=== PATIENT | female | born 1940 | race Caucasian/White ===

== ENCOUNTER 2019-08-14 17:30 | Emergency (ER) | payer OTHER ==
[~2019-08-14] VITALS: Ht 157.5 cm; Wt 67.1 kg
[2019-08-14 18:00] LABS: ABSOLUTE BASOPHILS 0.1 thou/uL (0.0-0.2); ABSOLUTE EOSINOPHILS 0.1 thou/uL (0.0-0.7); ABSOLUTE LYMPHOCYTES 1.1 thou/uL (0.8-5.3); ABSOLUTE MONOCYTES 0.6 thou/uL (0.0-1.2); ABSOLUTE NEUTROPHILS 3.9 thou/uL (1.6-8.1); BASOPHILS 0.9 %; EOSINOPHILS 1.3 %; HEMATOCRIT 38.6 % (37.0-47.0); HEMOGLOBIN 13.1 gm/dL (12.0-15.0); LYMPHOCYTES 19.3 %; MCH 31.7 pg (26.0-34.0); MCHC 33.9 g/dL (28.0-37.0); MCV 93.5 fL (80.0-100.0); MONOCYTES 10.5 %; MPV 10.6 fl. (7.2-11.1); NUCLEATED RBCS 0 /100WBC; PLATELET COUNT* 153 thou/uL (150-400); RBC 4.13 mil/uL (4.20-5.00); RDW-CV 14.1 % (10.5-14.5); WBC 5.8 thou/uL (4.0-11.0)
[2019-08-14] MEDS ORDERED: LIPITOR40 MG PO (18:01)
[2019-08-14] MEDS ORDERED: ASA81BEC PO (18:01)
[2019-08-14] MEDS ORDERED: DILTIAZEM ER180 M2 PO (18:01)
[2019-08-14] MEDS ORDERED: DIVALPROEX SOD125 MG PO (18:02)
[2019-08-14] MEDS ORDERED: COZAAR 25 MG TA25 M2 (18:02)
[2019-08-14] MEDS ORDERED: FUROSEMIDE 20 M20 MG PO (18:02)
[2019-08-14] MEDS ORDERED: MAGNESIUM250 M1 PO (18:02)
[2019-08-14] MEDS ORDERED: SERTRALINE HCL100 MG PO (18:03)
[2019-08-14] MEDS ORDERED: KLOR-CON 1010 MEQ PO (18:03)
[2019-08-14] MEDS ORDERED: PROTONIX40 M2 PO (18:03)
[2019-08-14] MEDS ORDERED: COD LIVER OIL1 EAC5 PO (18:04)
[2019-08-14] MEDS ORDERED: MAPAP325 MG PO (18:04)
[2019-08-14] MEDS ORDERED: ROBAFEN CF LIQ118 ML PO (18:05)
[2019-08-14 18:10] LABS: APTT 24.8 Seconds (25.0-31.3); INR 1.1; PROTIME 10.8 Seconds (9.20-11.50)
[2019-08-14 18:17] LABS: CALCIUM 8.9 mg/dL (8.5-10.1); CREATININE 0.9 mg/dL (0.6-1.3); POTASSIUM 3.9 mmol/L (3.5-5.1)
[2019-08-14 18:21] LABS: ALBUMIN 3.6 g/dL (3.4-5.0); TOTAL BILIRUBIN 0.5 mg/dL (<0.1-1.0); TOTAL PROTEIN 6.9 g/dL (6.4-8.2)
[2019-08-14] MEDS ORDERED: KEFLEX500 M1 PO (19:43)
[2019-08-14] MEDS ORDERED: CENTANY30 GM TOP (19:43)
[2019-08-14 20:48] VITALS: BP 137/80
--- NOTE | 2019-08-16 08:38 | EKG ---
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1940 Requested By: Phani Edwards Order Number: [id number] MD: Nuno Bejarano Measurements Intervals [place] Rate: 62 P: [place]: QRS: 44 QRSD: 143 T: 73 QT: 397 QTc: 404 Interpretive Statements Atrial flutter with predominant 4:1 AV block IVCD, consider atypical RBBB No previous ECG available for comparison Electronically Signed On 08-16-2019 8:38:18 FOREIGN TRADE TEACHER by Nuno Bejarano [email or web address] <ELECTRONICALLY SIGNED> By: Nuno Bejarano MD, [facility] 08/16/19 0838 1744 1744 Nuno Bejarano MD, FACC /EPI
== END 2019-08-14 20:50 | disposition home or self-care (01) ==
LOC: M.ERS 17:30
PROVIDERS: Family Medicine
DX: S81.011A Laceration without foreign body, right knee, initial encounter (principal); S61.511A Laceration without foreign body of right wrist, initial encounter; S01.81XA Laceration without foreign body of other part of head, initial encounter; S70.02XA Contusion of left hip, initial encounter; R60.0 Localized edema; I48.91 Unspecified atrial fibrillation; W18.39XA Other fall on same level, initial encounter; Y93.89 Activity, other specified; Y92.89 Other specified places as the place of occurrence of the external cause; Y99.8 Other external cause status

== ENCOUNTER 2020-03-30 10:46 | Inpatient (IN) | payer MEDICARE ==
[~2020-03-30] VITALS: Ht 167.6 cm; Wt 67.6 kg
[~2020-03-30 10:46] MED LIST: ASPIRIN EC325 M1 PO; CENTANY30 GM TOP; COD LIVER OIL1 EAC5 PO; COZAAR 25 MG TA25 M2; DILTIAZEM ER180 M2 PO; DIVALPROEX SOD125 MG PO; FUROSEMIDE 40 M40 MG PO; KEFLEX500 M1 PO; KLOR-CON 1010 MEQ PO; LIPITOR40 MG PO; MAG-OXIDE400 MG PO; MAPAP325 MG PO; PROTONIX40 M2 PO; ROBAFEN CF LIQ118 ML PO; SERTRALINE HCL25 M1 PO
[2020-03-30] MEDS ORDERED: LOPERAMIDE2 MG PO (10:54)
[2020-03-30 11:35] LABS: BE 0.8 mmol/L (-2 to +3); PO2 75.3 mmHg (75.0-100.0); pH 7.458 (7.340-7.450)
[2020-03-30 12:08] LABS: ABSOLUTE EOSINOPHILS 0.1 thou/uL (0.0-0.7); ABSOLUTE LYMPHOCYTES 1.1 thou/uL (0.8-5.3); ABSOLUTE MONOCYTES 0.7 thou/uL (0.0-1.2); ABSOLUTE NEUTROPHILS 5.4 thou/uL (1.6-8.1); BASOPHILS 0.6 %; EOSINOPHILS 0.9 %; HEMATOCRIT 42.2 % (37.0-47.0); HEMOGLOBIN 14.3 gm/dL (12.0-15.0); LYMPHOCYTES 15.6 %; MCH 32.1 pg (26.0-34.0); MCHC 33.8 g/dL (28.0-37.0); MONOCYTES 8.9 %; MPV 11.7 fl. (7.2-11.1); NUCLEATED RBCS 0 /100WBC; PLATELET COUNT* 191 thou/uL (150-400); RBC 4.44 mil/uL (4.20-5.00); RDW-CV 14.1 % (10.5-14.5); WBC 7.4 thou/uL (4.0-11.0)
[2020-03-30 12:19] LABS: APTT 24.9 Seconds (25.0-31.3); CALCIUM 9.2 mg/dL (8.5-10.1); CREATININE 0.8 mg/dL (0.6-1.3); POTASSIUM 4.3 mmol/L (3.5-5.1); PROTIME 10.7 Seconds (9.20-11.50)
[2020-03-30 12:29] LABS: ALBUMIN 3.5 g/dL (3.4-5.0); MAGNESIUM 2.2 mg/dL (1.8-2.4); TOTAL BILIRUBIN 0.6 mg/dL (<0.1-1.0); TOTAL PROTEIN 7.4 g/dL (6.4-8.2)
[2020-03-30 13:55] LABS: URINE BILIRUBIN NEGATIVE (Negative); URINE BLOOD NEGATIVE (Negative); URINE CLARITY CLEAR; URINE COLOR YELLOW; URINE GLUCOSE-RANDOM NEGATIVE (Negative); URINE KETONES TRACE (Negative); URINE LEUKOCYTES-REFLEX NEGATIVE (Negative); URINE NITRITE-REFLEX NEGATIVE (Negative); URINE PROTEIN NEGATIVE (Negative); URINE SPECIFIC GRAVITY 1.025 (1.005-1.030); URINE UROBILINOGEN 0.2 E.U./dl (0.2-1.0)
--- NOTE | 2020-03-30 15:04 | EKG ---
[place] [address] ELECTROCARDIOGRAM REPORT Name: ENRIQUE STEINER Room: [place] [address] ADM IN [facility].#: [id number] Admission: 03/30/20 Attend Phys: Pierre Chaparro Discharge: Date of : 36 Date of Service: 03/30/20 1058 Report #: [id number] THIS REPORT FOR: //name// [facility] ED Test Date: 2020-03-30 Test Time: 10:58:44 Pat Name: ENRIQUE STEINER Department: Room: [facility] Gender: F Inside Sales Account Executive: ANA LAURA : 1940 Requested By: Heidy Barker Order Number: [id number] MD: Nuno Bejarano Measurements Intervals [place] Rate: 82 P: [place]: QRS: 73 QRSD: 108 T: -35 QT: 393 QTc: 459 Interpretive Statements Atrial flutter Low voltage, precordial leads Borderline repol abnormality, diffuse leads Compared to ECG 08/14/2019 17:44:37 Low QRS voltage now present Electronically Signed On 03-30-2020 15:04:48 CDT by Nuno Bejarano [email or web address] <ELECTRONICALLY SIGNED> By: Nuno Bejarano MD, [facility] 03/30/20 1504 1058 1058 Nuno Bejarano MD, [facility] /EPI
[2020-03-30 16:47] VITALS: BP 189/96
[2020-03-30 16:53] VITALS: BP 129/92
[2020-03-30 19:50] VITALS: BP 133/97
[2020-03-31] VITALS: BP 149/79
[2020-03-31 04:00] VITALS: BP 140/87
[2020-03-31 08:00] VITALS: BP 134/94
[2020-03-31 12:00] VITALS: BP 148/83
[2020-03-31 12:02] LABS: POTASSIUM 4.1 mmol/L (3.5-5.1)
--- NOTE | 2020-03-31 12:34 | 2DMMODE ---
[place] [address] 2 D/M-MODE ECHOCARDIOGRAM Name: ENRIQUE STEINER Room: [address] IN [facility].#: [id number] Admission: 03/30/20 Attend Phys: Pierre Chaparro Discharge: Date of : 36 Date of Service: 03/31/20 1233 Report #: [id number] THIS REPORT FOR: cc: Tiomteo Lewis MD, Srinath MD Blick,Nuno Gunter MD [facility] ~ APPROVED REPORT Study performed: 03/31/2020 11:10:34 EXAM: Comprehensive 2D, Doppler, and color-flow Echocardiogram Patient Location: In-Patient Room #: [facility] BSA: 1.77 HR: 99 bpm BP: 140/87 mmHg Rhythm: Atrial Fibrillation Other Information Study Quality: Technically Limited Technically limited study due to uncooperative patient, patient could not tolerate procedure. Indications CVA/TIA Echo Enhancing Agent Indication: Rule out Shunt Agent(s) / Amount(s) Used: Agitated Saline 10 cc 2D Dimensions IVSd: 10.61 (7-11mm) LVOT Diam: 19.65 (18-24mm) LVDd: 38.59 mm PWd: 7.35 (7-11mm) Ascending Ao: 31.31 (22-36mm) LVDs: 24.94 (25-40mm) Aortic Root: 28.74 mm Aortic Valve AoV Peak Rodrigo.: 1.88 m/s AO Peak Gr.: 14.08 mmHg LVOT Max P.54 mmHg AO Mean Gr.: 8.22 mmHg LVOT Mean P.89 mmHg LVOT Max V: 0.62 m/s AO V2 VTI: 32.17 cm LVOT Mean V: 0.44 m/[place] [address] 2 D/M-MODE ECHOCARDIOGRAM Name: ENRIQUE STEINER Room: [address] IN [facility].#: [id number] Admission: 03/30/20 Attend Phys: Pierre Chaparro Discharge: Date of : 36 Date of Service: 03/31/20 1233 Report #: [id number] SHERRI (VTI): 1.05 cm2 LVOT V1 VTI: 11.12 cm Mitral Valve MV Decel. Time: 182.19 ms MV PHT: 52.84 ms MVA (PHT): 4.16 cm2 Pulmonary Valve PV Peak Rodrigo.: 0.82 m/s PV Peak Gr.: 2.68 mmHg Tricuspid Valve RAP Estimate: 5.00 mmHg TR Peak Gr.: 20.60 mmHg RVSP: 25.00 mmHg PA Pressure: 25.00 mmHg Left Ventricle The left ventricle is normal size. There is normal LV segmental wall motion. There is normal left ventricular wall thickness. Left ventricular systolic function is normal. The left ventricular ejection fraction is within the normal range. LVEF is 60-65%. This study is not technically sufficient to allow evaluation of the LV diastolic function due to atrial fibrillation. Right Ventricle The right ventricle is normal size. The right ventricular systolic function is normal. Atria The left atrium size is normal. Interatrial septum is intact without evidence of ASD or PFO. Due to technical difficulty of the study, a small right to left shunt could not be excluded The right atrium size is normal. Aortic Valve Moderate aortic valve sclerosis. Trace aortic regurgitation. Moderate aortic stenosis. Mitral Valve There is mitral annular calcification. The mitral valve is normal in structure. Trace mitral regurgitation. No evidence of mitral valve stenosis. Tricuspid Valve The tricuspid valve is normal in structure. Mild tricuspid regurgitation. [place] [address] 2 D/M-MODE ECHOCARDIOGRAM Name: ENRIQUE STEINER Room: [address]#: [id number] Admission: 03/30/20 Attend Phys: Pierre Chaparro Discharge: Date of : 36 Date of Service: 03/31/20 1233 Report #: [id number] Pulmonic Valve The pulmonary valve is normal in structure. Trace pulmonic regurgitation. Great Vessels The aortic root is normal in size. IVC is normal in size and collapses >50% with inspiration. Pericardium There is no pericardial effusion. <Conclusion> LVEF is 60-65%. Trace aortic regurgitation. Moderate aortic valve sclerosis. Interatrial septum is intact without evidence of ASD or PFO. Due to technical difficulty of the study, a small right to left shunt could not be excluded <ELECTRONICALLY SIGNED> By: Nuno Bejarano MD, [facility] 03/31/20 1233 1233 1233 Nuno Bejarano MD, [facility] /INF
[2020-03-31 16:00] VITALS: BP 106/62
[2020-03-31 20:00] VITALS: BP 142/86
[2020-04-01] VITALS: BP 145/93
[2020-04-01 02:06] LABS: GLYCOHEMOGLOBIN (HGB A1C) 5.6 % (4.8-5.6)
[2020-04-01 04:00] VITALS: BP 171/93
[2020-04-01 05:11] LABS: ANION GAP 7 mmol/L (7-16); BUN 17 mg/dL (7-18); CALCIUM 8.9 mg/dL (8.5-10.1); CHLORIDE 107 mmol/L (98-107); CHOLESTEROL 128 mg/dL (<200); CO2 28 mmol/L (21-32); CREATININE 0.8 mg/dL (0.6-1.3); GLUCOSE 91 mg/dL (70-99); HDL CHOLESTEROL 45 mg/dL (>40); LDL CHOLESTEROL 62 mg/dL (<100); POTASSIUM 3.6 mmol/L (3.5-5.1); SERUM ASSESSMENT Clear; SODIUM 142 mmol/L (136-145); TC:HDL 2.8 Ratio (Not establshd); TRIGLYCERIDE 107 mg/dL (<150); VLDL 21 mg/dL (<40)
[2020-04-01 08:00] VITALS: BP 146/82
[2020-04-01 09:55] LABS: ALBUMIN 2.9 g/dL (3.4-5.0); CALCIUM 8.7 mg/dL (8.5-10.1); CREATININE 0.7 mg/dL (0.6-1.3); POTASSIUM 4.1 mmol/L (3.5-5.1); TOTAL BILIRUBIN 0.5 mg/dL (<0.1-1.0); TOTAL PROTEIN 6.2 g/dL (6.4-8.2)
[2020-04-01 12:00] VITALS: BP 140/84
[2020-04-01] MEDS ORDERED: ELIQUIS5 M1 PO (12:25)
[2020-04-01 16:00] VITALS: BP 114/66
[2020-04-01 20:00] VITALS: BP 134/73
[2020-04-02] VITALS: BP 139/81
[2020-04-02 04:00] VITALS: BP 117/82
[2020-04-02 07:30] VITALS: BP 107/59
[2020-04-02 13:47] VITALS: BP 96/59
[2020-04-02 20:00] VITALS: BP 107/55
[2020-04-03] VITALS: BP 155/62
[2020-04-03 04:00] VITALS: BP 116/65
[2020-04-03 05:53] LABS: ALBUMIN 2.6 g/dL (3.4-5.0); CALCIUM 8.3 mg/dL (8.5-10.1); CREATININE 0.8 mg/dL (0.6-1.3); POTASSIUM 3.5 mmol/L (3.5-5.1); TOTAL BILIRUBIN 0.5 mg/dL (<0.1-1.0); TOTAL PROTEIN 5.6 g/dL (6.4-8.2)
[2020-04-03 09:00] VITALS: BP 109/70
[2020-04-03 16:26] VITALS: BP 103/64
[2020-04-03 20:00] VITALS: BP 128/84
[2020-04-04 07:30] VITALS: BP 161/84
[2020-04-04 16:00] VITALS: BP 139/75
[2020-04-04 19:40] VITALS: BP 138/75
[2020-04-05 07:30] VITALS: BP 137/78
[2020-04-05] MEDS ORDERED: ELIQUIS5 MG PO (12:35)
[2020-04-05 12:57] VITALS: BP 137/78
--- NOTE | 2020-04-06 03:46 | CON ---
[address] [address] CONSULTATION Name: ENRIQUE STEINER Room: [address] IN M.R.#: [id number] Admission: 03/30/20 Attend Phys: Jeremy Conklin Discharge: 04/05/20 Date of : 36 Report #: [id number] THIS REPORT FOR: //name// cc: Timoteo Lewis MD, Srinath MD ~ THIS REPORT FOR: //name// CC: Timoteo Chaparro DATE OF SERVICE: 03/30/2020 HISTORY OF PRESENT ILLNESS: The patient is an 79-year-old female patient who was evaluated by me for the possibility of stroke. I made multiple calls, but was not able to reach the daughter initially, but subsequently, I was able to and she provided the medical history. The patient does not provide much medical history. She is able to talk, but she does not have much memory. She was admitted actually because she was not able to swallow. There are multiple things going on in this patient. She has a previous history of intracerebral bleed from which she almost according to the nurses. She had no reoccurrence of the bleed, but subsequently had multiple ischemic strokes. One of the notes says that this patient has a history of atrial fibrillation. Daughter does not know anything about it. The question may be redundant because the patient's EKG shows atrial flutter. She is on aspirin. She has never been on anticoagulation. It is not clear whether it is because of a fall risk or because of aneurysm or because of a combination. She had a pretty large side stroke on the right side with a left hemiplegia, but that is her baseline. REVIEW OF SYSTEMS: Positive for prior aneurysm. It looks like the patient has pretty significant dementia. She was in assisted living, but she lost ground on her cognition when she was admitted to [facility]. This was her relevant 14-point review of system. PAST MEDICAL HISTORY: Positive for stroke as well as hemorrhage. FAMILY HISTORY: Noncontributory. SOCIAL HISTORY: She has a very supporting daughter and I talked to her. PHYSICAL EXAMINATION: Pretty limited. She does have hemiplegia on the left. She has virtually no memory. She is able to speak. Rest of the neurological examination was attempted, but was pretty suboptimal. Blood pressure is 129/92, respirations 18, pulse is 98.8. [place] [address] CONSULTATION Name: ENRIQUE STEINER Room: [address]#: [id number] Admission: 03/30/20 Attend Phys: Jeremy Conklin Discharge: 04/05/20 Date of : 36 Report #: [id number] LABORATORY DATA: Indicate a white count of 7.4, PTT is 24.9. IMPRESSION: This patient had multiple intractable problems. She has a prior history of intracerebral bleed, which is a lifetime contraindication for TPA. She does have atrial flutter here and she is not anticoagulated, and she is predisposed to have a bleed because of her aneurysm. That makes it very difficult. She also appeared to have advanced dementia, which is at least partly secondary to multiple infarcts. Question is what to do with this patient and that it is very difficult and I discussed that with the daughter. My feeling will be to do very conservative or comfort care on this patient. I have reviewed her images and MRI is contraindicated and I am not sure what else can be done. Thank you very much for this referral and if you have any question, please feel free to contact me. More than 50 minutes of time was spent taking care of this patient today and majority of that time was spent counseling and coordinating. <ELECTRONICALLY SIGNED> By: Mike Paz MD 04/06/20 0346 1718 1832Pclark Paz MD /nt
--- NOTE | 2020-04-06 03:46 | EEG ---
[address] [address] EEG STUDY REPORT Name: ENRIQUE STEINER Room: [address] IN M.R.#: [id number] Admission: 03/30/20 Attend Phys: Jeremy Conklin Discharge: 04/05/20 Date of : 36 Report #: [id number] THIS REPORT FOR: //name// CC: Timoteo Chaparro DATE OF SERVICE: 03/30/2020 ELECTROENCEPHALOGRAM This patient is being evaluated for encephalopathy. EEG was done by placing the electrode by standard 10-20 system of electrode placement. Both referential and sequential montages were used for recording. Background activity in this patient's EEG is about 5-6 Hz and 30 microvolt. It is a symmetrical activity. Photic stimulation is unremarkable. The patient went to sleep that is associated with bilateral slowing and vertex sharp waves. Throughout the record, no active epileptiform activity was noticed. IMPRESSION: This is an abnormal EEG because it is disorganized and poorly formed. That is a nonspecific abnormality, which can occur with encephalopathy, effect of psychotropic medication, dementia, etc. Clinical correlation is recommended. <ELECTRONICALLY SIGNED> By: Mike Paz MD 04/06/20 0346 1509 1546Mike Paz MD /nt
--- NOTE | 2020-04-11 07:55 | CON ---
[address] [address] CONSULTATION Name: ENRIQUE STEINER Room: [address] IN M.R.#: [id number] Admission: 03/30/20 Attend Phys: Jeremy Conklin Discharge: 04/05/20 Date of : 36 Report #: [id number] THIS REPORT FOR: //name// cc: Timoteo Lewis MD, Srinath MD ~ THIS REPORT FOR: //name// CC: Timoteo Chaparro DATE OF SERVICE: 04/01/2020 CARDIOLOGY CONSULTATION HISTORY OF PRESENT ILLNESS: I was asked to see this 79-year-old white female in cardiology consultation by Dr. Pierre Chaparro. This lady has permanent atrial fibrillation. She came from a prison. She has had more than one CVAs. She has been anticoagulated with aspirin. She has been getting 325 mg daily. I am asked to consult with regard to starting full anticoagulation with an oral anticoagulant such as Eliquis or Xarelto. She had a stroke in the not too distant past. She cannot give a history, however. I believe that involved the right frontal area. She now appears to have had a stroke involving the left posterior frontal area. Recent not too long ago, she had a coil placed in an aneurysm in the anterior cerebral artery on the right, I believe. 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 She was sent in by the prison because she acutely became unable to take her medications. She is awake and alert, but cannot give much of a history. She is not exactly sure why she is here. 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 PAST MEDICAL HISTORY: Includes taking the following medications: Tylenol p.r.n., aspirin 325 mg daily, atorvastatin 40 mg daily, diltiazem 180 mg daily, divalproex 125 mg b.i.d., Lasix 40 mg daily, p.r.n. loperamide for diarrhea, losartan 25 mg daily, magnesium oxide 400 mg daily, Protonix 40 mg daily, potassium 20 mEq b.i.d., sertraline 25 mg at bedtime, vitamin A, D, and cod liver oil 1 capsule daily. She cannot give much of a history with regard to prior problems. She apparently has hypertension and hypercholesterolemia. She cannot give an adequate review of systems or social history. LABORATORY DATA: Her EKG shows atrial flutter with variable block. Apparently, she has had atrial fibrillation in the past; however, her chest x-ray showed right hilar prominence with mass not excluded left basilar density, possibly some atelectasis with a small left pleural effusion. There was vascular congestion and interstitial infiltrate. This was chronic and was similar to prior study. CTs of the head were obtained. She did not get an MRI because of her coil in her head. They basically showed the above findings of the [facility], [place] [address] CONSULTATION Name: ENRIQUE STEINER Room: [address] IN [facility]#: [id number] Admission: 03/30/20 Attend Phys: Jeremy Conklin Discharge: 04/05/20 Date of : 36 Report #: [id number] etc. She had carotid Dopplers done that were fairly unremarkable other than tortuous internal carotids bilaterally and [id number] right carotid plaquing, but no obstruction of flow. PHYSICAL EXAMINATION: GENERAL: She presented as a well-developed, well-nourished white female, in no acute distress. VITAL SIGNS: Her pulse was 84 and irregular, blood pressure is 146/82, respirations are 18 and regular, temperature is 98.5. HEENT: Her head was atraumatic. Eyes clear. NECK: Supple. There is no jugular venous distention or hepatojugular reflux. Thyroid is not enlarged. There is no adenopathy. SKIN: Warm and dry. Mucous membranes are moist. LUNGS: Clear to auscultation and percussion. HEART: Revealed normal first and second heart sound. There was no S4, no S3. Rhythm was irregularly irregular. There were no murmurs, rubs, thrills, heaves or gallops. PMI is not displaced. ABDOMEN: Soft, flat and nontender. No palpable masses, no organomegaly. EXTREMITIES: Reveal no cyanosis, clubbing or edema. NEUROLOGIC: The patient mentated poorly, did move her left side, but not very well. She did talk normally, but clearly had an impaired mental status. Her EKG is as described above and shows atrial flutter with a heart rate was 82. There was tremor artifact and was variable block. IMPRESSION: 1. Chronic atrial fibrillation and atrial flutter. 2. Acute right and left frontal cerebrovascular accident. 3. Chronic CVAs involving the right frontal area. 4. 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 5. 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 6. Essential hypertension. 7. Hypercholesterolemia. RECOMMENDATION: She has obviously had previous embolic strokes and is at high risk for having more. Unfortunately, she is at high risk to anticoagulate given her aneurysm that has not been coiled as well as the size of her recent strokes. I would anticoagulate her with Eliquis. I agree with the neurologist who wants to do this. There may be some risk of bleeding into her head, but will anticoagulate her starting slowly. She is at extremely high risk of having much worse event with a big embolus. Unfortunately, there is no risk free way to proceed, but I think the risk of not anticoagulating her exceeds the risk of anticoagulating her. Obviously, aspirin does not work for her. Aspirin is associated with just as high risk of [place] [address] CONSULTATION Name: OBDULIAENRIQUE Room: [address] IN M.R.#: [id number] Admission: 03/30/20 Attend Phys: Jeremy Conklin Discharge: 04/05/20 Date of : 36 Report #: [id number] Thank you very much for asking me to see this patient. If there are any questions, please feel free to contact me. <ELECTRONICALLY SIGNED> By: Charlene Henry MD, FACC 04/11/20 0755 1245 1310F. Manuel Henry MD, FACJuana /nt
== END 2020-04-05 17:23 | DRG 64 ==
LOC: M.ERS 10:46 → M.TBA-ER 13:52 → M.2W 13:52 → M.3W 04-03 18:09 → M.2W 04-05 04:55 → M.3W 04-05 04:59
PROVIDERS: Personal Emergency Response Attendant; ADMIT Internal Medicine; ATTEND Internal Medicine
DX: I63.9 Cerebral infarction, unspecified (principal); G93.41 Metabolic encephalopathy; I69.354 Hemiplegia and hemiparesis following cerebral infarction affecting left non-dominant side; I48.92 Unspecified atrial flutter; I48.21 Permanent atrial fibrillation; I67.1 Cerebral aneurysm, nonruptured; R47.02 Dysphasia; I10 Essential (primary) hypertension; E78.00 Pure hypercholesterolemia, unspecified; F03.90 Unspecified dementia, unspecified severity, without behavioral disturbance, psychotic disturbance, mood disturbance, and anxiety; Z79.82 Long term (current) use of aspirin; Z79.899 Other long term (current) drug therapy; Z03.818 Encounter for observation for suspected exposure to other biological agents ruled out

== ENCOUNTER 2021-03-12 20:56 | Inpatient (IN) | payer MEDICARE ==
[~2021-03-12] VITALS: Ht 165.1 cm; Wt 77.3 kg
--- NOTE | ~2021-03-12 | PROC ---
[address] [address] PROCEDURE REPORT Name: ENRIQUE STEINER Room: [address] ADM IN M.R.#: [id number] Admission: 03/12/21 Attend Phys: Destiney Keller MD Discharge: Date of : 36 Report #: [id number] THIS REPORT FOR: cc: Timoteo Lewis MD, Srinath MD SM,Medical Records Staff ~ For GI report, please see the Provation report in Perceptive 7 content. By: 1451Medical Records Staff AVA /MABLE
[~2021-03-12 20:56] MED LIST changes: +ELIQUIS5 M1 PO; +ELIQUIS5 MG PO; +LOPERAMIDE2 MG PO
[2021-03-12 21:04] VITALS: BP 131/73
[2021-03-12] MEDS ORDERED: ELIQUIS5 MG PO (21:10)
[2021-03-12] MEDS ORDERED: FAMOTIDINE 20 M20 MG PO (21:11)
[2021-03-12 21:51] LABS: ABSOLUTE BASOPHILS 0.1 thou/uL (0.0-0.2); ABSOLUTE EOSINOPHILS 0.1 thou/uL (0.0-0.7); ABSOLUTE LYMPHOCYTES 1.2 thou/uL (0.8-5.3); ABSOLUTE MONOCYTES 0.9 thou/uL (0.0-1.2); ABSOLUTE NEUTROPHILS 6.1 thou/uL (1.6-8.1); BASOPHILS 1.4 %; EOSINOPHILS 0.6 %; LYMPHOCYTES 14.7 %; MCH 17.5 pg (26.0-34.0); MCHC 28.6 g/dL (28.0-37.0); MCV 61.2 fL (80.0-100.0); MONOCYTES 10.8 %; NUCLEATED RBCS 0 /100WBC; PLATELET COUNT* 306 thou/uL (150-400); POLYS 72.5 %; RDW-CV 19.7 % (10.5-14.5); WBC 8.5 thou/uL (4.0-11.0)
[2021-03-12 22:00] LABS: HEMATOCRIT 14.7 % (37.0-47.0); HEMOGLOBIN 4.2 gm/dL (12.0-15.0)
[2021-03-12 22:01] LABS: CALCIUM 8.8 mg/dL (8.5-10.1); CREATININE 0.6 mg/dL (0.6-1.3); POTASSIUM 4.4 mmol/L (3.5-5.1)
[2021-03-12 22:02] LABS: INR 1.1; PROTIME 11.2 Seconds (9.20-11.50)
[2021-03-12 22:05] LABS: ALBUMIN 3.3 g/dL (3.4-5.0); TOTAL BILIRUBIN 0.4 mg/dL (<0.1-1.0); TOTAL PROTEIN 6.5 g/dL (6.4-8.2)
[2021-03-12 22:33] LABS: ANISOCYTOSIS 3+; HYPOCHROMASIA 3+; MICROCYTES 3+; PLATELET ESTIMATE ADEQUATE
[2021-03-12 23:23] VITALS: BP 114/72
[2021-03-12 23:30] VITALS: BP 117/72
--- NOTE | 2021-03-12 23:30 | NUR ---
RECEIVED REPORT FROM ER, PT TO ROOM PER CART. PT CALM AND COOPERATIVE. LT HAND WITH CONTRACTURES. JAIMIE LOWER LEGS 2+ EDEMA. NO SKIN BREAKDOWN NOTED. TELEMETRY ON SHOWING A-FIB. NOTIFIED DGT PT WAS HERE AND DISCUSSED BLOOD TRANSFUSION. SEE ADMISSION ASSESSMENT AND HX. WILL CONT TO MONITOR AND ASSIST NEEDED.
[2021-03-12 23:59] VITALS: BP 108/54; BP 112/52; BP 120/60; BP 138/74
[2021-03-13 03:47] VITALS: BP 112/52; BP 123/60; BP 138/60; BP 140/65; BP 140/67
--- NOTE | 2021-03-13 05:50 | NUR ---
2ND UNIT OF BLOOD TRANSFUSING, TOLERATING WELL. PT HAVING OCC WHEEZING WITH BREATHING, NO SOA NOTED. O2 ON AT 4L/NC DUE TO LOW HGB. CONT PULSE OX ON. INCONT OF URINE, IV LASIX GIVEN ORDERED. NO CHANGE IN ASSESSMENT.
[2021-03-13 09:00] VITALS: BP 126/63
--- NOTE | 2021-03-13 10:21 | NUR ---
CM ASSESSMENT: PT RESTING WITH EYES CLOSED WHEN CM ATTEMPTED TO ASSESS. REVIEW OF PT'S CHART INFORMS THAT THE PT CURRENTLY RESIDES AT [facility]. CM SPOKE TO [facility] ADMISSIONS AND THEY CONFIRM THAT THE PT CURRENTLY RESIDES THERE. PT USES A WHEELCHAIR FOR MOBILITY AT THE FACILITY. [facility] ABLE TO ACCEPT THE PT AT D/C. CM ATTEMPTED TO CONTACT PT'S DTR TO DISCUSS D/C PLANNING, AND TO INFORM OF THE ROLE OF CM. NO ANSWER. CM WILL ATTEMPT TO CONTACT PT'S DTR AT ANOTHER TIME. CM WILL REMAIN AVAILABLE TO ASSIST AND FOLLOW NEEEDED.
[2021-03-13 12:00] VITALS: BP 124/66
--- NOTE | 2021-03-13 15:34 | EKG ---
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: MC : 1940 Requested By: Jocelyn Coelho Order Number: [id number] MD: Duy Marvin Measurements Intervals [place] Rate: 111 P: [place]: QRS: 64 QRSD: 84 T: 16 QT: 312 QTc: 424 Interpretive Statements Atrial fibrillation Low voltage, precordial leads Minimal ST depression, lateral leads Baseline wander in lead(s) V1,V6 Compared to ECG 03/30/2020 10:58:44 Atrial fib is noted Electronically Signed On 03-13-2021 15:34:25 CDT by Duy Marvin [email or web address] <ELECTRONICALLY SIGNED> By: Duy Marvin MD, FAC 03/13/21 1534 09 09 Duy Marvin MD, [facility] /EPI
[2021-03-13 16:00] VITALS: BP 106/54
--- NOTE | 2021-03-13 16:37 | 2DMMODE ---
[place] [address] 2 D/M-MODE ECHOCARDIOGRAM Name: SIDRA STEINERTIE Room: [address] IN [facility]#: [id number] Admission: 03/12/21 Attend Phys: Destiney Keller, Discharge: Date of : 36 Date of Service: 03/13/21 1636 Report #: [id number] THIS REPORT FOR: cc: Timoteo Lewis MD, Srinath MD [place], Michael J. MD [facility] ~ APPROVED REPORT Study performed: 03/13/2021 15:05:38 EXAM: Comprehensive 2D, Doppler, and color-flow Echocardiogram Patient Location: In-Patient Room #: 230 Status: routine BSA: 1.75 HR: 71 bpm Rhythm: Atrial Fibrillation Other Information Study Quality: Good Indications Atrial Fibrillation Dyspnea 2D Dimensions IVSd: 8.02 (7-11mm) LVOT Diam: 19.61 (18-24mm) LVDd: 45.71 mm PWd: 9.78 (7-11mm) Ascending Ao: 30.61 (22-36mm) LVDs: 26.44 (25-40mm) Aortic Root: 38.07 mm Volumes Left Atrial Volume (Systole) LA ESV Index: 48.90 mL/m2 Aortic Valve AoV Peak Rodrigo.: 2.50 m/s AO Peak Gr.: 24.93 mmHg LVOT Max P.86 mmHg AO Mean Gr.: 14.06 mmHg LVOT Mean P.50 mmHg LVOT Max V: 0.84 m/s AO V2 VTI: 49.98 cm LVOT Mean V: 0.57 m/s SHERRI (VTI): 1.14 cm2 LVOT V1 VTI: 18.88 [place] [address] 2 D/M-MODE ECHOCARDIOGRAM Name: ENRIQUE STEINER Room: [address] IN ..#: [id number] Admission: 03/12/21 Attend Phys: Destiney Keller, Discharge: Date of : 36 Date of Service: 03/13/21 1636 Report #: [id number] [place]: 1.65 m/s2 AI PHT: 611.27 ms Mitral Valve MV Mean Gr.: 2.34 mmHg TDI Medial E' Rodrigo.: 0.11 m/s Lateral E' Rodrigo.: 0.12 m/s Pulmonary Valve PV Peak Rodrigo.: 0.86 m/s PV Peak Gr.: 2.97 mmHg Tricuspid Valve RAP Estimate: 5.00 mmHg TR Peak Gr.: 26.35 mmHg RVSP: 31.00 mmHg PA Pressure: 31.00 mmHg Left Ventricle The left ventricle is normal size. There is normal LV segmental wall motion. There is normal left ventricular wall thickness. Left ventricular systolic function is normal. LVEF is 55-60%. This study is not technically sufficient to allow evaluation of the LV diastolic function due to atrial fibrillation. Right Ventricle The right ventricle is normal size. The right ventricular systolic function is normal. Atria Left atrium is moderately dilated. Right atrium is mildly dilated. Aortic Valve Moderate aortic valve sclerosis. Mild aortic regurgitation. Moderate aortic stenosis. Mitral Valve There is mitral annular calcification. Mild mitral regurgitation. No evidence of mitral valve stenosis. Tricuspid Valve The tricuspid valve is normal in structure. Mild tricuspid regurgitation. Mild pulmonary hypertension. The RVSP is 35-[place] [address] 2 D/M-MODE ECHOCARDIOGRAM Name: OBDULIA,ENRIQUE Room: [address] IN ..#: [id number] Admission: 03/12/21 Attend Phys: Destiney Keller, Discharge: Date of : 36 Date of Service: 03/13/21 1636 Report #: [id number] Pulmonic Valve The pulmonary valve is normal in structure. Mild pulmonic regurgitation. Great Vessels The aortic root is normal in size. IVC is normal in size and collapses >50% with inspiration. Pericardium There is no pericardial effusion. Left pleural effusion. <Conclusion> The left ventricle is normal size. There is normal left ventricular wall thickness. Left ventricular systolic function is normal. LVEF is 55-60%. There is normal LV segmental wall motion. Left atrium is moderately dilated. Right atrium is mildly dilated. Moderate aortic valve sclerosis. Mild aortic regurgitation. Moderate aortic stenosis. There is mitral annular calcification. Mild mitral regurgitation. Mild tricuspid regurgitation. Mild pulmonary hypertension. The RVSP is 35-40 mmHg. IVC is normal in size and collapses >50% with inspiration. Left pleural effusion. <ELECTRONICALLY SIGNED> By: Shayne Rey MD, FACC 03/13/21 1636 1636 163 Shayne Rey MD, FACC /INF
[2021-03-13 20:00] VITALS: BP 101/56
[2021-03-14 00:05] VITALS: BP 119/65; BP 124/63; BP 132/69; BP 147/66
[2021-03-14 05:01] VITALS: BP 141/80
[2021-03-14 05:27] LABS: HEMATOCRIT 26.1 % (37.0-47.0); HEMOGLOBIN 8.2 gm/dL (12.0-15.0); MCH 22.8 pg (26.0-34.0); MCHC 31.4 g/dL (28.0-37.0); MPV 8.5 fl. (7.2-11.1); RBC 3.6 mil/uL (4.20-5.00); RDW-CV 27.5 % (10.5-14.5); WBC 7.9 thou/uL (4.0-11.0)
[2021-03-14 05:40] LABS: MCV 72.4 fL (80.0-100.0)
--- NOTE | 2021-03-14 07:56 | NUR ---
ASSUMED CARE OF PT AFTER REPORT AT 1930. PT A&OX1. CONFUSED. VSS. PHYSICAL ASSESSMENT COMPLETED AND CHARTED. PT ON O2 AT 2LNC. PT TRACING SR/1ST DEG ON TELE. PT WITH EPISODES OF INCONTINENT BLADDER. PT HGB 6.7-DR ZHAO MADE AWARE-TRANSFUSED 1 UNIT BLOOD. FALL PRECAUTIONS IN PLACE. CALL LIGHT WITHIN REACH.
[2021-03-14 08:00] VITALS: BP 133/64
[2021-03-14 12:12] VITALS: BP 121/77
--- NOTE | 2021-03-14 15:25 | NUR ---
PLAN OF CARE: PHYSICIAN INFORMS THAT PT IS NOT MEDICALLY STABLE TO D/C AT THIS TIME. GI CONSULT PENDING. PLAN FOR THE PT TO RETURN TO [facility] WHEN MEDICALLY STABLE. CM WILL REMAIN AVAILABLE TO ASSIST AND FOLLOW NEEDED.
[2021-03-14 16:40] VITALS: BP 119/57
[2021-03-15] VITALS (7 sets, daily range): BP systolic 134–166; BP diastolic 66–94
--- NOTE | 2021-03-15 03:42 | NUR ---
ASSUMED CAREOF PT AT 1900. PT IS CONFUSED. VSS. PERRLA. LEFT SIDED WEAKNESS. NO COMPLAINTS OFPAIN. PT IS ON ROOM AIR. PT IS NPO FOR EGD. PT IS IN A FLUTTER ON THE TELEMETRY.PT IS SLEEPING COMFORTABLY IN BED. RESPIRATIONS ARE EVEN AND NONLABORED. WILL CONTINUE TO MONITOR PT.
[2021-03-15 04:42] LABS: ABSOLUTE BASOPHILS 0.1 thou/uL (0.0-0.2); ABSOLUTE EOSINOPHILS 0.1 thou/uL (0.0-0.7); ABSOLUTE LYMPHOCYTES 1.1 thou/uL (0.8-5.3); ABSOLUTE MONOCYTES 0.7 thou/uL (0.0-1.2); ABSOLUTE NEUTROPHILS 4.7 thou/uL (1.6-8.1); BASOPHILS 0.9 %; EOSINOPHILS 1.4 %; HEMATOCRIT 25.6 % (37.0-47.0); LYMPHOCYTES 16.8 %; MCH 22.4 pg (26.0-34.0); MCHC 31.3 g/dL (28.0-37.0); MCV 71.6 fL (80.0-100.0); MPV 8.7 fl. (7.2-11.1); NUCLEATED RBCS 0 /100WBC; PLATELET COUNT* 244 thou/uL (150-400); POLYS 69.9 %; RBC 3.57 mil/uL (4.20-5.00); RDW-CV 28.7 % (10.5-14.5); WBC 6.7 thou/uL (4.0-11.0)
[2021-03-15 05:11] LABS: CALCIUM 8.6 mg/dL (8.5-10.1); CREATININE 0.7 mg/dL (0.6-1.3); POTASSIUM 4.3 mmol/L (3.5-5.1)
--- NOTE | 2021-03-15 10:07 | CON ---
[address] [address] CONSULTATION Name: ENRIQUE STEINER Room: [address] IN M.R.#: [id number] Admission: 03/12/21 Attend Phys: Destiney Keller MD Discharge: Date of : 36 Report #: [id number] THIS REPORT FOR: cc: Timoteo Russell MD, Srinath MD Liston,Shayne Greer MD FACC ~ cc: TIMOTEO RUSSELL MD DATE OF CONSULTATION: 03/13/2021 INDICATION: Possible heart failure and chronic atrial flutter with anemia. HISTORY OF PRESENT ILLNESS: The patient was brought to the Emergency Room today for further evaluation of a hemoglobin of 4.2. In this setting, she reports shortness of breath, chest pain and weakness. She is without other specific cardiac complaint acutely. She does have a history of previous strokes with left hemiplegia. At the time of my interview, she is not complaining of any pain or significant shortness of breath, although history is lacking. PAST MEDICAL HISTORY: 1. Chronic atrial flutter with chronic anticoagulation. 2. Previous CVA on at least 2 separate occasions. 3. History of cerebral aneurysm, status post coiling. 4. Dementia. 5. Diastolic heart failure. 6. Hypertension. 7. GERD. 8. Encephalopathy. HOME MEDICATIONS: Eliquis 5 mg p.o. b.i.d., atorvastatin 40 mg p.o. daily, diltiazem 180 mg p.o. daily, divalproex 125 mg p.o. daily, furosemide 40 mg daily, losartan 50 mg daily, magnesium oxide 400 mg daily, Protonix 40 mg b.i.d., potassium chloride 20 mEq p.o. b.i.d., sertraline 25 mg p.o. at bedtime, cod liver oil soft gel 1 capsule daily, acetaminophen 325 mg daily, loperamide 2 mg p.o. p.r.n., Eliquis 5 mg b.i.d., famotidine 20 mg at bedtime. ALLERGIES: None documented. SOCIAL HISTORY: Per the chart, the patient lives in assisted care. She is a lifelong nonsmoker. There is no alcohol intake. REVIEW OF SYSTEMS: [place] [address] CONSULTATION Name: ENRIQUE STEINER Room: [address]#: [id number] Admission: 03/12/21 Attend Phys: Destiney Keller MD Discharge: Date of : 38 Report #: [id number] PHYSICAL EXAMINATION: VITAL SIGNS: Blood pressure 117/72, pulse is 97 and regular. GENERAL: This is a pleasant elderly female who does not appear to be in distress. HEENT: Extraocular muscles intact. Mucous membranes are moist. NECK: Shows no jugular venous distention. There are no bruits. CHEST: Reveals slight expiratory wheezes with reasonable air movement. CARDIAC: Reveals a regular rhythm. I do not appreciate gallop or murmur. ABDOMEN: Reveals normal bowel sounds. Abdomen is soft, nontender. EXTREMITIES: Shows no significant edema. SKIN: Dry. LABORATORY DATA: Reviewed. Sodium 144, potassium 4.4, chloride 109, bicarb 28, BUN 17, creatinine 0.6, serum glucose 101. LFTs are within normal limits for the most part. Albumin 3.3. Troponin less than 0.06. NT-proBNP 2737. Protime 11.2, INR 1.1, APTT 24.9. White blood cell count 8.5, hemoglobin presently 6.7, hematocrit 14.7, platelet count 306,000. MCV is 61.2. Hemoccult stool negative. Chest x-ray, no acute cardiopulmonary abnormality. EKG shows atrial flutter with variable AV conduction and no acute ST abnormality. IMPRESSION AND RECOMMENDATIONS: 1. Persistent atrial flutter. Reasonably rate controlled presently. Her CHADS-VASc score is 7, conferring a 10% risk for stroke annually. Would recommend long-term anticoagulation with Eliquis 5 mg b.i.d. 2. Acute anemia. No obvious bleeding source at this time. The patient is hemoccult negative. The patient has been transfused. Would recommend transfusing to hemoglobin of at least a 7.0 or greater. Should the patient develop overt bleeding issues, would discontinue Eliquis until bleeding situation can be dealt with. 3. Hypertension. Blood pressure adequately controlled at present. 4. Carotid vascular disease by remote studies with moderate nonocclusive plaquing, presently stable. 5. 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 No indication to suggest additional stroke at this time. 6. Hypercholesterolemia, on statin agent. 7. Elevated NT-proBNP suggestive of possible heart failure. Echocardiogram has [facility] [address] [place] [address] CONSULTATION Name: ENRIQUE STEINER Room: [facility] IN M.R.#: [id number] Admission: 03/12/21 Attend Phys: Destiney Keller MD Discharge: Date of : 36 Report #: [id number] been ordered. The patient does not appear to be acutely volume overloaded at this time. No specific treatment at this time until echo completed. <ELECTRONICALLY SIGNED> By: Shayne Rey MD, FACC 03/15/21 1007 1227 1500Micdelmar Rey MD, FACC /nt
--- NOTE | 2021-03-15 15:16 | NUR ---
PLAN OF CARE: PHYSICIAN INFORMS THAT THE PT NOT MEDICALLY STABLE. GI AND ORTHO CONSULTS PENDING. PLAN FOR PT TO RETURN TO [facility] LTC AT D/C. CM WILL REMAIN AVAILABLE TO ASSIST AND FOLLOW NEEDED.
--- NOTE | 2021-03-15 20:00 | NUR ---
RECEIVED REPORT AND ASSUMED CARE OF PT, ASSESSMENT COMPLETED. DGT WAS AT BEDSIDE BUT HAS LEFT FOR THE NIGHT. PT INCONT OF URINE, DOES NOT LIKE TO BE TURNED OR CHANGED, PUSHES AGAINST BEDRAIL. NO BREAKDOWN NOTED. TELEMETRY ON SHOWING A-FIB. WILL CONT TO MONITOR AND ASSIST NEEDED.
[2021-03-16] VITALS: BP 145/84
[2021-03-16 04:07] VITALS: BP 140/82
[2021-03-16 05:00] LABS: HEMATOCRIT 27.2 % (37.0-47.0); HEMOGLOBIN 8.5 gm/dL (12.0-15.0); MCH 22.7 pg (26.0-34.0); MCHC 31.2 g/dL (28.0-37.0); MCV 72.6 fL (80.0-100.0); RBC 3.74 mil/uL (4.20-5.00); RDW-CV 29.5 % (10.5-14.5); WBC 5.8 thou/uL (4.0-11.0)
[2021-03-16 05:33] LABS: CALCIUM 8.8 mg/dL (8.5-10.1); CREATININE 0.6 mg/dL (0.6-1.3); POTASSIUM 4.3 mmol/L (3.5-5.1)
--- NOTE | 2021-03-16 06:30 | NUR ---
SLEPT WELL. PT ASSIST WITH REPOSITIONING, WEDGE TO BACK. INCONT OF BOWEL AND BLADDER. TOLERATING THIN LIQUIDS. NO CHANGE IN ASSESSMENT. TELEMETRY SHOWING A-FIB. HS GOALS OF REST AND SAFETY ACHIEVED. HOURLY ROUNDING OBSERVED.
[2021-03-16 08:00] VITALS: BP 139/47
[2021-03-16 12:00] VITALS: BP 132/80
--- NOTE | 2021-03-16 15:06 | NUR ---
PLAN OF CARE: PHYSICIAN INFORMS THAT THE PT MAY BE READY TO D/C OVER THE WEEKEND. CM INFORMED [facility] ADMISSIONS AND THEY ARE ABLE TO ACCEPT THE PT OVER THE WEEKEND. [facility] WILL NEED TO BE CONTACTED, D/C ORDERS FAXED, AND CHART COPY SENT WITH PT AT D/C. PT WILL LIKELY NEED STRETCHER TRANSPORT AT D/C. CM WILL REMAIN AVAILABLE TO ASSIST AND FOLLOW NEEDED. [facility] PHONE: [phone] FAX: [phone]
[2021-03-16 16:00] VITALS: BP 138/79
[2021-03-16 20:00] VITALS: BP 129/72
--- NOTE | 2021-03-16 20:00 | NUR ---
RECEIVED REPORT AND ASSUMED CARE OF PT, ASSESSMENT COMPLETED. COLON PREP IN PROGRESS, PT INCONT OF LG AMT OF LIQUID STOOL. PERIAREA BECOMING RED, BARRIER CREAM APPLIED. PT ASSISTING WITH MOVING IN BED. TELEMETRY ON SHOWING A-FIB. WILL CONT TO MONITOR AND ASSIST NEEDED.
[2021-03-17 01:10] VITALS: BP 114/59
[2021-03-17 04:08] VITALS: BP 138/45
[2021-03-17 04:32] LABS: HEMATOCRIT 28.6 % (37.0-47.0); HEMOGLOBIN 8.9 gm/dL (12.0-15.0); MCH 22.5 pg (26.0-34.0); MCV 72.6 fL (80.0-100.0); MPV 8.9 fl. (7.2-11.1); RBC 3.94 mil/uL (4.20-5.00); RDW-CV 29.7 % (10.5-14.5); WBC 5.7 thou/uL (4.0-11.0)
[2021-03-17 04:39] LABS: CREATININE 0.7 mg/dL (0.6-1.3); POTASSIUM 4.1 mmol/L (3.5-5.1)
--- NOTE | 2021-03-17 06:30 | NUR ---
BOWEL PREP IN PROGRESS, STOOLS LIQ BUT NOT CLEAR. SYLVAIN AREA RED WITH BARRIER CREAM APPLIED. NO CHANGE IN ASSESSMENT. HS GOALS OF REST AND SAFETY ACHIEVED. HOURLY ROUNDING OBSERVED.
[2021-03-17 12:40] VITALS: BP 102/54
[2021-03-17 16:00] VITALS: BP 132/79
[2021-03-17 20:00] VITALS: BP 128/60
[2021-03-17 23:49] VITALS: BP 130/55
[2021-03-18 04:01] VITALS: BP 141/75
--- NOTE | 2021-03-18 04:47 | NUR ---
ASSUMED PT CARE AT APPROX 1930. PT IS AWAKE, ORIENTED TO SELF AND PLACE. PT IS NOT IN DISTRESS, NO DESATURATIONS NOTED ON ROOM 2L OF O2/NC. PT IS TRACING SR ON THE BRIM STRETCHER. PT DENIES PAIN/DISCOMFORT. PUREWICK PLACED FOR INCONTINENCE, PT IS KEPT CLEAN AND DRY, POSITION CHANGES DONE. NO ACUTE CHANGES THIS SHIFT. CALL LIGHT WITHIN REACH. HOURLY ROUNDING DONE FOR PT SAFETY.
[2021-03-18 08:07] LABS: HEMATOCRIT 27.9 % (37.0-47.0); HEMOGLOBIN 8.6 gm/dL (12.0-15.0); MCH 22.5 pg (26.0-34.0); MCHC 30.8 g/dL (28.0-37.0); MCV 72.8 fL (80.0-100.0); MPV 9.4 fl. (7.2-11.1); NUCLEATED RBCS 0 /100WBC; PLATELET COUNT* 249 thou/uL (150-400); RBC 3.83 mil/uL (4.20-5.00); RDW-CV 29.8 % (10.5-14.5); WBC 7.7 thou/uL (4.0-11.0)
[2021-03-18 08:15] LABS: CALCIUM 8.8 mg/dL (8.5-10.1); CREATININE 0.7 mg/dL (0.6-1.3); POTASSIUM 4.3 mmol/L (3.5-5.1)
[2021-03-18 09:00] VITALS: BP 103/52
[2021-03-18 09:11] LABS: ABSOLUTE BASOPHILS 0.1 thou/uL (0.0-0.2); ABSOLUTE LYMPHOCYTES 1.2 thou/uL (0.8-5.3); ABSOLUTE MONOCYTES 0.2 thou/uL (0.0-1.2); ABSOLUTE NEUTROPHILS 6.2 thou/uL (1.6-8.1); PLATELET ESTIMATE ADEQUATE
[2021-03-18 12:16] VITALS: BP 113/60
[2021-03-18 16:00] VITALS: BP 112/65
[2021-03-18 20:00] VITALS: BP 132/74
[2021-03-19] VITALS: BP 133/70
[2021-03-19 04:53] LABS: HEMATOCRIT 28.2 % (37.0-47.0); HEMOGLOBIN 8.5 gm/dL (12.0-15.0); MCH 22.1 pg (26.0-34.0); MCV 73.7 fL (80.0-100.0); MPV 9.2 fl. (7.2-11.1); RBC 3.82 mil/uL (4.20-5.00); WBC 10.5 thou/uL (4.0-11.0)
[2021-03-19 05:09] LABS: CALCIUM 8.5 mg/dL (8.5-10.1); CREATININE 0.8 mg/dL (0.6-1.3); POTASSIUM 4.1 mmol/L (3.5-5.1)
--- NOTE | 2021-03-19 06:38 | NUR ---
ASSUMED PT CARE AT APPROX 1930. PT IS AWAKE, ORIENTED TO SELF. PT IS TRACING SR ON THE YARN DRY ROOM WORKER. NO DESATURATIONS NOTED ON 2L OF O2/NC. PT DENIES PAIN. PT IS KEPT CLEAN AND DRY, PT REMAINED INCONTINENT, PUREWICK IN PLACE. NO ACUTE CHANGES THIS SHIFT, CALL LIGHT WITHIN REACH. HOURLY ROUNDING DONE FOR PT SAFETY.
[2021-03-19 12:00] VITALS: BP 122/61
--- NOTE | 2021-03-19 13:36 | NUR ---
PLAN OF CARE: PHYSICIAN INFORMS THAT THE PT IS NOT MEDICALLY STABLE AT THIS TIME. PLAN FOR PT TO RETURN TO HER LTC BED AT [facility] AT D/C. CM TO FAX [facility] CLINICAL UPDATE. CM WILL REMAIN AVAILABLE TO ASSIST AND FOLLOW NEEDED.
--- NOTE | 2021-03-19 14:09 | NUR ---
Nutrition: Pt admitted with anemia. Seen for LOS. CLD and on laxatives. Pt is from [facility]. Wt: 150#. Albumin 3.3, prealbumin 16.2. She told me she is eating fine. She said she needs help opening food items. Will order Ensure Clear for added nutrition intake. Otherwise, mild nutrition risk at this time.
[2021-03-19 16:00] VITALS: BP 124/68
[2021-03-19 20:00] VITALS: BP 129/68
[2021-03-20 00:31] VITALS: BP 148/70
[2021-03-20 03:49] VITALS: BP 143/83
[2021-03-20 04:25] LABS: ABSOLUTE EOSINOPHILS 0.2 thou/uL (0.0-0.7); ABSOLUTE LYMPHOCYTES 1.1 thou/uL (0.8-5.3); ABSOLUTE MONOCYTES 0.9 thou/uL (0.0-1.2); BASOPHILS 0.5 %; EOSINOPHILS 2.5 %; HEMOGLOBIN 8.8 gm/dL (12.0-15.0); LYMPHOCYTES 13.1 %; MCH 22.3 pg (26.0-34.0); MCHC 30.3 g/dL (28.0-37.0); MCV 73.4 fL (80.0-100.0); MONOCYTES 10.5 %; MPV 8.8 fl. (7.2-11.1); NUCLEATED RBCS 0 /100WBC; PLATELET COUNT* 232 thou/uL (150-400); POLYS 73.4 %; RBC 3.95 mil/uL (4.20-5.00); RDW-CV 29.9 % (10.5-14.5); WBC 8.2 thou/uL (4.0-11.0)
[2021-03-20 04:26] LABS: CALCIUM 8.5 mg/dL (8.5-10.1); CREATININE 0.6 mg/dL (0.6-1.3); POTASSIUM 3.7 mmol/L (3.5-5.1)
[2021-03-20 04:27] LABS: APTT 24.2 Seconds (25.0-31.3); PROTIME 10.8 Seconds (9.20-11.50)
--- NOTE | 2021-03-20 05:50 | NUR ---
ASSUMED PT CARE AT APPROX 1930. PT IS AWAKE, ORIENTED TO SELF AND PLACE. PT IS NOT IN DISTRESS, NO DESATURATIONS NOTED ON ROOM 2L OF O2/NC. PT IS TRACING SR/SB ON THE LOAD CHECKER. PUREWICK IN PLACE FOR INCONTINENCE, CHANGED THIS AM. AND CHANGED THIS AM. PT IS KEPT CLEAN AND DRY POSITION CHANGES DONE. NO ACUTE CHANGES NOTED. HIGH FALL PRECAUTIONS IN PLACE. HOURLY ROUNDING DONE FOR PT SAFETY.
--- NOTE | 2021-03-20 07:10 | NUR ---
CHANGE OF SHIFT REPORT GIVEN PATIENT SEEN AT BEDSIDE ,IN BED ASLEEP ASSUMED PATIENT CARE
[2021-03-20 07:48] LABS: PLATELET ESTIMATE ADEQUATE
[2021-03-20 07:49] LABS: ANISOCYTOSIS 2+; HYPOCHROMASIA 2+; MICROCYTES 2+; POIKILOCYTOSIS 1+; SCHISTOCYTES Occasional
[2021-03-20 08:00] VITALS: BP 137/74
[2021-03-20 12:00] VITALS: BP 102/75
--- NOTE | 2021-03-20 15:02 | NUR ---
PLAN OF CARE: PHYSICIAN INFORMS THAT THE PT IS NOT MEDICALLY STABLE FOR D/C AT THIS TIME. PLAN FOR THE PT TO D/C BACK TO [facility] L[facility]. CM FAXED UPDATED CLINCIALS TO [facility] AND THEY CONFIRM ABILITY TO ACCEPT THE PT BACK TO LTC AT D/C, BUT PT WILL NEED A RAPID COVID TEST PRIOR TO D/C. CM WILL REMAIN AVAILABLE TO ASSIST AND FOLLOW NEEDED.
[2021-03-20 16:00] VITALS: BP 159/86
[2021-03-20 20:00] VITALS: BP 132/71
[2021-03-20 22:06] LABS: T7 2.3 (1.2-4.9)
[2021-03-21] VITALS: BP 97/73
[2021-03-21 03:50] VITALS: BP 97/73
[2021-03-21 04:00] VITALS: BP 137/83
[2021-03-21 04:18] LABS: ABSOLUTE BASOPHILS 0.1 thou/uL (0.0-0.2); ABSOLUTE EOSINOPHILS 0.2 thou/uL (0.0-0.7); ABSOLUTE LYMPHOCYTES 0.9 thou/uL (0.8-5.3); ABSOLUTE MONOCYTES 0.9 thou/uL (0.0-1.2); ABSOLUTE NEUTROPHILS 7.6 thou/uL (1.6-8.1); BASOPHILS 0.6 %; EOSINOPHILS 2.1 %; HEMOGLOBIN 9.6 gm/dL (12.0-15.0); LYMPHOCYTES 9.3 %; MCH 22.4 pg (26.0-34.0); MCHC 30.8 g/dL (28.0-37.0); MCV 72.6 fL (80.0-100.0); MONOCYTES 9.3 %; NUCLEATED RBCS 0 /100WBC; PLATELET COUNT* 257 thou/uL (150-400); POLYS 78.7 %; RBC 4.27 mil/uL (4.20-5.00); RDW-CV 29.9 % (10.5-14.5); WBC 9.6 thou/uL (4.0-11.0)
[2021-03-21 04:53] LABS: ALBUMIN 2.8 g/dL (3.4-5.0); CALCIUM 8.8 mg/dL (8.5-10.1); CREATININE 0.6 mg/dL (0.6-1.3); POTASSIUM 3.5 mmol/L (3.5-5.1); TOTAL BILIRUBIN 0.7 mg/dL (<0.1-1.0)
--- NOTE | 2021-03-21 06:33 | NUR ---
ASSUMED PT CARE AT APPROX 1930. PT IS AWAKE, ORIENTED TO SELF AND PLACE. PT IS NOT IN DISTRESS, PT IS TRACING AFIB RATE CONTROLLED ON THE LIVESTOCK HANDLER. PT HAS NPO AFTER MIDNIGHT FOR OPEN PARTIAL LEFT COLECTOMY AND PRIMARY UMBILICAL HERNAI REPAIR TODAY. PT WHEELED TO PRE-OP AT APPROX 0600, DAUGHTER ERIN UPDATED THROUGH PHONE.
[2021-03-21 07:03] LABS: ANISOCYTOSIS 2+; HYPOCHROMASIA 2+; MICROCYTES 2+
[2021-03-21 13:49] VITALS: BP 133/82
--- NOTE | 2021-03-21 15:23 | NUR ---
PLAN OF CARE: PHYSICIAN INFORMS OF PLAN FOR THE PT TO REMAIN INPT FOR AT LEAST 24-48 MORE HRS. PLAN FOR THE PT TO RETURN TO [facility] AT D/C. CM WILL REMAIN AVAILABLE TO ASSIST AND FOLLOW NEEDED.
[2021-03-21 16:00] VITALS: BP 111/79
--- NOTE | 2021-03-21 16:29 | NUR ---
ASSUMED CARE OF PT AT 0730. PT IN SURGERY AND BACK TO ROOM AT APPROXIMATELY 1355. REPORT RECEIVED FROM LJ PALMER. PT DROWSY, SLEEPING BUT AROUSABLE. TRACING AFIB/AFLUTTER ON THE LANE MARKER INSTALLER. ON 2L POST SURGERY SAT MID 90'S-CONTINUOUS PULSE OX IN PLACE. LIMA CATHETER IN PLACE WITH CLEAR YELLOW URINE. NEW IV PLACED IN PACU TO LEFT FOREARM-LR INFUSING AT 80ML/HR PER EMAR. NEW COLOSTOMY NOTED ON LEFT-PRAVENA DRAIN IN PLACE TO DEPENDENT DRAINAGE. AM ASSESSMENT CHARTED. MEDICATIONS PER MAR CRUSHED IN APPLESAUCE. PT REPOSITIONED EVERY 2 HOURS FOR COMFORT. HOURLY ROUNDING OBSERVED. BED IN LOW POSITION. BED ALARM IN PLACE. FALL PRECAUTIONS IN PLACE. CALL LIGHT WITHIN REACH. WILL CONTINUE PLAN OF CARE.
--- NOTE | 2021-03-21 18:06 | PATH ---
[facility] [address] [place] [address] PATHOLOGY RPT PROCEDURE Name: ENRIQUE STEINER Room: [address] IN M.R.#: [id number] Admission: 03/12/21 Date of : 36 Discharge: Report #: [id number] Path Case #: [id number] [facility] Accession Number: [id number] . 01 Material submitted: . colon - ULCERATIVE MALIGNANT STRICTURE DISTAL DESCENDING COLON. Modifiers: distal, descending . 01 Clinical history: . EGD AND COLONOSCOPY . 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 SEE COMMENT. . (MITCHELL:larry; 03/20/2021) [facility] 03/20/2021 1654 Local . 02 Comment: Reviewed with Dr. Abdirashid Castillo on 03/21/2021 who agrees with the diagnosis. . Dr. Gutiérrez notified at approximately 1440 on 03/21/2021. . (MITCHELL:mm; 03/20/2021) . 02 Electronically signed: . Wiley Judd MD, Pathologist NPI- [id number] . 01 Gross description: . The specimen is received in formalin, labeled "Enrique Steiner, distal descending colon". Received are 2 segments of pale vegas tissue ranging in size from 0.3 to 0.5 cm in maximum dimensions. The specimen is submitted entirely in cassette A1.([facility]; 03/19/2021) [facility] 03/19/2021 1316 Local . 02 Pathologist provided ICD-10: C18.6 . 02 CPT . 828246 Specimen Comment: A courtesy copy of this report has been sent to [phone] Specimen Comment: Report sent to Performed at: [address] [id number] MD Ghulam Moran MD Phone: [phone] [place] [address] PATHOLOGY RPT PROCEDURE Name: ENRIQUE STEINER Room: [address] ADM IN M.R.#: [id number] Admission: 03/12/21 Date of : 38 Discharge: Report #: [id number] Path Case #: [id number] Performed at: [address], [place], [place] [id number] MD Wiley Judd MD Phone: [phone]
[2021-03-21 20:00] VITALS: BP 116/74
[2021-03-22] VITALS (7 sets, daily range): BP systolic 91–131; BP diastolic 42–75
[2021-03-22 04:41] LABS: ABSOLUTE LYMPHOCYTES 0.4 thou/uL (0.8-5.3); ABSOLUTE MONOCYTES 1.6 thou/uL (0.0-1.2); ABSOLUTE NEUTROPHILS 14.2 thou/uL (1.6-8.1); BASOPHILS 0.1 %; HEMATOCRIT 27.7 % (37.0-47.0); HEMOGLOBIN 8.3 gm/dL (12.0-15.0); LYMPHOCYTES 2.5 %; MCH 21.9 pg (26.0-34.0); MONOCYTES 9.7 %; MPV 9.2 fl. (7.2-11.1); NUCLEATED RBCS 0 /100WBC; PLATELET COUNT* 213 thou/uL (150-400); POLYS 87.7 %; RBC 3.79 mil/uL (4.20-5.00); RDW-CV 29.4 % (10.5-14.5); WBC 16.1 thou/uL (4.0-11.0)
[2021-03-22 04:59] LABS: CALCIUM 8.3 mg/dL (8.5-10.1); POTASSIUM 4.2 mmol/L (3.5-5.1)
[2021-03-22 05:13] LABS: CREATININE 1.7 mg/dL (0.6-1.3)
[2021-03-22 05:15] LABS: PHOSPHORUS* 4.1 mg/dL (2.5-4.9)
--- NOTE | 2021-03-22 07:28 | NUR ---
ASSUMED PT CARE AT APPROX 1900. PT IS LETHARGIC, WAKES UP WHEN NAME IS CALLED BUT GOES BACK TO SLEEP AFTER. PT IS NOT IN DISTRESS, NO DESATURATIONS NOTED O N2L OF O2/NC. POST OP INCISION DRESSING IS CLEAN DRY AND INTACT, WOUND VAC INTACT-NO DRAINAIGE NOTED. COLOSTOMY IS PINK MOIST AND INTACT-WITH VERY MINIMAL LIGHT BROWN SOFT STOOL. LIMA CATHETER INTACT, DECREASED URINE OUTPUT NOTED. DR FERGUSON INFORMED OF DECREASED URINE OUTPUT AND CHANGE IN CREATININE LEVEL-NS 500ml IV WO ORDERED. REPORT GIVEN TO LEIDY CALHOUN.
--- NOTE | 2021-03-22 11:37 | NUR ---
ASSUMED CARE OF PT AT 0730. PT A&[id number], FORETFUL AND CONFUSED-HISTORY DEMENTIA NOTED. TRACING A FLUTTER ON THE EDGE FINISHER. ON 3L NC SAT MID 90'S. WHEEZES NOTED. DR FERGUSON NOTIFIED. ORDERS RECEIVED FOR PRN BREATHING TREATMENTS. COLOSTOMY TO DEPENDENT DRAINAGE. LIMA TO DEPENDENT DRAINAGE. PRAVENA DRESSING C/D/I AND WOUND VAC IN PLACE. LEFT SIDED WEAKNESS NOTED. PT REQUIRES TOTAL ASSIST WITH MEALS-CURRENTLY ON CLEAR LIQUID DIET. ADDITIONAL 500ML BOLUS LR GIVEN PER SURGERY. REFER TO EMAR. LR INFUSING AT 80ML/HR. PT GOAL FOR TODAY IS MONITOR LABS, IVF, PAIN MGMT AND INCREASE ACTIVITY. AM ASSESSMENT CHARTED. MEDICATIONS PER OCT. PT REPOSITIONED EVERY 2 HOURS FOR COMFORT. HOURLY ROUNDING OBSERVED. BED IN LOW POSITION. BED ALARM IN PLACE. FALL PRECAUTIONS IN PLACE. CALL LIGHT WITHIN REACH. WILL CONTINUE PLAN OF CARE.
[2021-03-22 15:27] LABS: CALCIUM 8.8 mg/dL (8.5-10.1); CREATININE 2.4 mg/dL (0.6-1.3); POTASSIUM 3.7 mmol/L (3.5-5.1)
[2021-03-22 16:24] LABS: URINE BLOOD NEGATIVE (Negative); URINE CLARITY CLEAR; URINE COLOR YELLOW; URINE GLUCOSE-RANDOM NEGATIVE (Negative); URINE KETONES TRACE (Negative); URINE LEUKOCYTES-REFLEX TRACE (Negative); URINE PROTEIN 1+ (Negative); URINE SPECIFIC GRAVITY >= 1.030 (1.005-1.030); URINE UROBILINOGEN 0.2 E.U./dl (0.2-1.0)
[2021-03-22 16:33] LABS: ICTOTEST (BILI CONFIRMATORY) Negative (Negative); URINE BILIRUBIN 1+ (Negative); URINE NITRITE-REFLEX POSITIVE (Negative)
[2021-03-22 16:55] LABS: HYALINE CASTS 4-10 Moderate /LPF (None Seen)
[2021-03-22 16:56] LABS: BACTERIA-REFLEX 1-9 Few /HPF (None Seen); CRYSTALS None Seen /LPF (None Seen); MUCUS None Seen strn/LPF (None Seen); SQUAMOUS 0-3 Few /LPF (0-3); URINE RBC 0-2 Rare /HPF (0-2); URINE WBC-REFLEX 6-15 Few /HPF (0-5)
[2021-03-23] VITALS: BP 95/37
[2021-03-23 04:00] VITALS: BP 105/40
--- NOTE | 2021-03-23 06:47 | NUR ---
Oriented x 1 and confused. She has been repositioned every 2 hours. She's had IV fluids going this shift and did have 300 mls output per saavedra. Midline abdominal incision has Prevena woundvac. She is wheezy but does not some fluid overloaded. She spit out her meds. She has slept well.
[2021-03-23 08:00] VITALS: BP 137/60
[2021-03-23 10:41] LABS: HEMOGLOBIN 7.5 gm/dL (12.0-15.0); MCH 22.1 pg (26.0-34.0); MCHC 29.8 g/dL (28.0-37.0); MCV 74.1 fL (80.0-100.0); MPV 9.7 fl. (7.2-11.1); RBC 3.38 mil/uL (4.20-5.00); RDW-CV 29.6 % (10.5-14.5)
[2021-03-23 10:56] LABS: CALCIUM 8.3 mg/dL (8.5-10.1); CREATININE 1.2 mg/dL (0.6-1.3); MAGNESIUM 2.2 mg/dL (1.8-2.4); POTASSIUM 3.7 mmol/L (3.5-5.1)
[2021-03-23 12:00] VITALS: BP 134/71
--- NOTE | 2021-03-23 15:31 | NUR ---
PLAN OF CARE: PHYSICIAN INFORS THAT PT WILL LIKELY REMAIN INPT THROUGH THE WEEKEND. PLAN FOR OSTOMY NURSE TO SEE PT. PT ALSO PENDING SURGERY CLEARANCE. [facility] ABLE TO ACCEPT THE PT AT D/C. CM WILL REMAIN AVAILABLE TO ASSIST AND FOLLOW NEEDED. [facility] PHONE: [phone] FAX: [phone]
[2021-03-23 17:16] VITALS: BP 130/63
[2021-03-23 20:30] VITALS: BP 117/63
[2021-03-24 00:19] VITALS: BP 128/65
[2021-03-24 05:15] VITALS: BP 102/53
--- NOTE | 2021-03-24 08:15 | NUR ---
PATIENT SLEPT MOST OF THE NIGHT. IV FLUIDS AND ANTIBIOTICS WERE GIVEN ORDERED. MIDLINE INCISION REMAINS INTACT WITH WOUND VAC IN PLACE. PATIENT REMAINS ON OXYGEN AT 3L. LIMA REMAINS TO DEPENDENT DRAIN. WILL CONTINUE TO MONITOR.
[2021-03-24 09:23] LABS: ABSOLUTE BASOPHILS 0.1 thou/uL (0.0-0.2); ABSOLUTE EOSINOPHILS 0.1 thou/uL (0.0-0.7); ABSOLUTE LYMPHOCYTES 0.6 thou/uL (0.8-5.3); ABSOLUTE MONOCYTES 0.9 thou/uL (0.0-1.2); BASOPHILS 1.2 %; EOSINOPHILS 0.8 %; HEMOGLOBIN 7.5 gm/dL (12.0-15.0); LYMPHOCYTES 6.1 %; MCH 21.9 pg (26.0-34.0); MCHC 29.9 g/dL (28.0-37.0); MCV 73.2 fL (80.0-100.0); MONOCYTES 9.7 %; MPV 8.8 fl. (7.2-11.1); NUCLEATED RBCS 0 /100WBC; PLATELET COUNT* 231 thou/uL (150-400); POLYS 82.2 %; RBC 3.42 mil/uL (4.20-5.00); RDW-CV 29.3 % (10.5-14.5); WBC 9.7 thou/uL (4.0-11.0)
[2021-03-24 09:33] VITALS: BP 139/76
[2021-03-24 09:39] LABS: ALBUMIN 2.2 g/dL (3.4-5.0); CALCIUM 8.2 mg/dL (8.5-10.1); CREATININE 0.8 mg/dL (0.6-1.3); MAGNESIUM 2.3 mg/dL (1.8-2.4); PHOSPHORUS* 2.1 mg/dL (2.5-4.9); POTASSIUM 3.7 mmol/L (3.5-5.1); TOTAL BILIRUBIN 0.4 mg/dL (<0.1-1.0); TOTAL PROTEIN 5.6 g/dL (6.4-8.2)
[2021-03-24 12:00] VITALS: BP 136/74
--- NOTE | 2021-03-24 13:46 | OP ---
[address] [address] OPERATIVE REPORT Name: ENRIQUE STEINER Room: [address] IN M.R.#: [id number] Admission: 03/12/21 Attend Phys: Destiney Keller MD Discharge: Date of : 38 Report #: [id number] THIS REPORT FOR: cc: Timoteo Lewis MD, Srinath MD Gazzetta, Joshua D. DO ~ Dictated by Dr. Hector Cisneros DO PGY5 cc: Shan Balderrama DO DATE OF SURGERY: 03/21/2021 PREOPERATIVE DIAGNOSES: Malignant stricture in the mid descending colon, umbilical hernia. POSTOPERATIVE DIAGNOSES: Malignant stricture in the mid descending colon, umbilical hernia containing incarcerated omentum, left-sided spigelian hernia and a liver nodule. SURGEON: Shan Balderrama DO CO-SURGEON: Hector Cisneros DO, PGY5 ASSISTANTS: Raji Wood, PGY1 and Grace Solorio MS3 PROCEDURES PERFORMED: Open left colectomy, primary repair of left-sided spigelian hernia, primary umbilical hernia repair and excisional biopsy of liver nodule, takedown of splenic flexure ANESTHESIA: General. ESTIMATED BLOOD LOSS: 30 mL SPECIMENS: Left colon and liver nodule. HISTORY OF PRESENT ILLNESS: The patient is an 80-year-old female who presented initially to the hospital after a fall and was found to be severely anemic. Workup including colonoscopy revealed a left-sided malignant stricture in the mid descending colon that was tattooed at the time of colonoscopy. A colonic stent was also placed. Surgical team was notified and we evaluated the patient for a possible left-sided colectomy. We performed preoperative staging with CT chest, abdomen and pelvis and discussed with the family the risks, benefits and alternatives of this kind of surgery with the patient. After significant discussion, family decided they wished to proceed with surgery. [place] [address] OPERATIVE REPORT Name: ENRIQUE STEINER Room: [address] IN M.R.#: [id number] Admission: 03/12/21 Attend Phys: Destiney Keller MD Discharge: Date of : 36 Report #: [id number] DESCRIPTION OF PROCEDURE: The patient was taken to the operating room and placed in the supine position. SCDs applied to bilateral lower extremities, safety belt placed across the patient's waist. Two grams of Ancef and 500 mg of Flagyl were given for surgical prophylaxis. The patient underwent general endotracheal anesthesia without any complication. The patient's abdomen was prepped and draped in the standard sterile fashion. Timeout was performed to confirm patient and procedure. A midline celiotomy was then performed above the umbilicus to just below the umbilicus using a 10 blade scalpel. Electrocautery was used for hemostasis and to dissect down to the level of her large umbilical hernia. This umbilical hernia was dissected out circumferentially and did contain a significant amount of omentum. Once the hernia sac was entered, we extended our incision along the full extent of our skin incision. Once the fascia was incised, our hernia contents, which was omentum, was reduced back into the abdomen. Hernia sac was dissected free from the fascia and we then extended our celiotomy cephalad and caudad to allow for further visualization of the abdominal contents. Immediately, we did note a significantly dilated transverse colon, which was eviscerated. We could see the tattooing and could feel the stent in the left side of the colon. We inspected the rest of the abdomen including the small intestine and palpated the liver. We did find a small nodule just to the left of the falciform ligament, roughly segment 4 that may have been consistent with a metastatic nodule. We inspected the entirety of the colon from the cecum to the rectum and found no other lesions that were palpable. At this time, we proceeded to mobilize the left side of the colon medially following the white line of Toldt from healthy sigmoid colon up to the splenic flexure. The splenic flexure was then mobilized laterally and then by entering the lesser sac, we were able to further mobilize the splenic flexure. There was moderate amount of omentum that was adhesed to our left-sided colon lesion. Once the colon was completely mobilized, we measured roughly 5 cm from our tattoo glory in the left mid descending colon to healthy tissue in the sigmoid colon and a 75 PEDRO stapler was fired across healthy colon creating our distal margin. After further mobilizing the colon, we then also found our resection margin and our mid transverse colon just to include the left branch of the middle colic artery. We fired a 75 PEDRO stapler across this portion of the transverse colon. Using a LigaSure, we then completed our oncologic resection to include the left colic artery and vein, right at the base of the retroperitoneum and the mesentery. Dissection was carried from distal to proximal and specimen was sent for pathologic evaluation. At this point, we irrigated the abdomen with 2 liters of saline. Incidentally we found a left sided spigelian hernia containing preperitoneal fat. Hernia was reduced and hernia defect was repaired with one suture of 0-prolene in a figure of eight fashion. Intra-abdominal [facility] [address] [place] [address] OPERATIVE REPORT Name: SIDRA STEINERTIE Room: [address] IN M.R.#: [id number] Admission: 03/12/21 Attend Phys: Destiney Keller MD Discharge: Date of : 36 Report #: [id number] contents were inspected. The ureter and gonadal vessels were identified on the left side and were completely intact. After all fluid was suctioned out, we reinspected our liver and using a 15 blade scalpel, we took an excisional biopsy of our suspected liver met. Once hemostasis was ensured with electrocautery and Surgicel, we began to plan for colostomy creation. Due to the significantly dilated transverse colon, we did not feel that the patient would be a candidate for anastomosis in a 1-stage procedure. A left-sided colostomy was then created in a Destiny fashion. The midline fascia was reapproximated with 2 running sutures of #1 looped PDS. Subcutaneous tissue was reapproximated with 3-0 Vicryl. The skin was reapproximated with norma. Prevena wound VAC system was placed on the midline incision. Ostomy device was placed over a colostomy. All needle, instrument and sponge counts correct x2 at the end of the case. The patient was awoken from general anesthesia and transferred to PACU in stable condition. <ELECTRONICALLY SIGNED> By: Shan Balderrama DO 03/24/21 6086 1129 [id number] Princess Balderrama DO /
[2021-03-24 16:00] VITALS: BP 142/85
[2021-03-24 16:17] LABS: URINE BILIRUBIN NEGATIVE (Negative); URINE BLOOD 1+ (Negative); URINE CLARITY CLEAR; URINE COLOR YELLOW; URINE GLUCOSE-RANDOM NEGATIVE (Negative); URINE KETONES 1+ (Negative); URINE LEUKOCYTES NEGATIVE (Negative); URINE NITRITE NEGATIVE (Negative); URINE PROTEIN 2+ (Negative); URINE UROBILINOGEN 0.2 E.U./dl (0.2-1.0)
[2021-03-24 16:39] LABS: HYALINE CASTS 0-3 Few /LPF (None Seen); MUCUS 4-6 Moderate strn/LPF (None Seen); SQUAMOUS >10 Many /LPF (0-3)
[2021-03-24 16:41] LABS: CRYSTALS None Seen /LPF (None Seen); URINE WBC 0-5 Rare /HPF (0-5)
[2021-03-24 16:42] LABS: BACTERIA 1-9 Few /HPF (None Seen)
[2021-03-24 20:00] VITALS: BP 130/82
[2021-03-25 00:36] VITALS: BP 103/49
[2021-03-25 04:00] VITALS: BP 137/74
[2021-03-25 07:49] LABS: ABSOLUTE EOSINOPHILS 0.2 thou/uL (0.0-0.7); ABSOLUTE LYMPHOCYTES 0.7 thou/uL (0.8-5.3); ABSOLUTE MONOCYTES 0.8 thou/uL (0.0-1.2); ABSOLUTE NEUTROPHILS 6.3 thou/uL (1.6-8.1); BASOPHILS 0.6 %; EOSINOPHILS 2.2 %; HEMATOCRIT 25.3 % (37.0-47.0); HEMOGLOBIN 7.8 gm/dL (12.0-15.0); LYMPHOCYTES 9.1 %; MCH 22.8 pg (26.0-34.0); MCHC 30.6 g/dL (28.0-37.0); MCV 74.3 fL (80.0-100.0); MONOCYTES 10.1 %; MPV 9.7 fl. (7.2-11.1); NUCLEATED RBCS 0 /100WBC; PLATELET COUNT* 253 thou/uL (150-400); RBC 3.41 mil/uL (4.20-5.00); RDW-CV 29.1 % (10.5-14.5); WBC 8.1 thou/uL (4.0-11.0)
[2021-03-25 08:01] LABS: ALBUMIN 2.2 g/dL (3.4-5.0); CALCIUM 8.5 mg/dL (8.5-10.1); CREATININE 0.6 mg/dL (0.6-1.3); POTASSIUM 3.8 mmol/L (3.5-5.1); TOTAL BILIRUBIN 0.2 mg/dL (<0.1-1.0); TOTAL PROTEIN 5.6 g/dL (6.4-8.2)
[2021-03-25 08:50] VITALS: BP 124/76
[2021-03-25 12:00] VITALS: BP 139/74
[2021-03-25 16:00] VITALS: BP 149/80
--- NOTE | 2021-03-25 17:03 | NUR ---
OSTOMY NURSE - PATIENT NOW 4 DAYS POST-OP FOLLOWING EXPLORATORY LAPAROTOMY, LEFT PARTIAL COLECTOMY, SPLENIC FLEXURE TAKEDOWN, LIGATURE OF MESENTERIC VESSEL, LIVER BIOPSY, COLOSTOMY AND PRIMARY REPAIF OF UMBILICAL & SPIGELIAN HERNIAS ON 03/21/[address] Mchugh FOR MALIGNANT STRICTURE OF DESCENDING COLON. PATIENT RESIDES AT [facility] FOLLOWING 4 PRIOR STROKES AND HISTORY OF DEMENTIA. HER DAUGHTER IS AT BEDSIDE. ABDOMEN NON-DISTENDED & SOFT. PREVENA INTACT TO MIDLINE INCISION, NO DRAINAGE IN CANISTER. COLOSTOMY STOMA LEFT ABDOMEN BEEFY RED, MOIST, MODERATELY EDEMATOUS AND PROTRUDES WELL. VERY SLIGHT MUCOCUTANEOUS INCISION ALONG LATERAL ASPECT FROM 2-4 O'CLOCK. PERISTOMAL SKIN INTACT. DRAINING MODERATE AMOUNTS OF LIQUID BROWN STOOL. PREVENA SEAL BREECHED SLIGHTLY WITH REMOVAL OF POUCH, BUT ABLE TO PATCH WITH TEGADERM. BRIEFLY EXPLAINED COLOSTOMY AND CARE TO DAUGHTER. PATIENT IS DEPENDENT ON STAFF FOR [facility] CAR[facility], SO THEY WILL BE PROVIDING COLOSTOMY CARE. SOME INITIAL SUPPLIES AND COLOSTOMY TEACHING PACKET AT BEDSIDE. CURRENTLY USING MARÍA 2 PIECE POUCH (BARRIER # [id number], POUCH # [id number]), BUT MAY EVENTUALLY BE MORE EASILY MANAGED WITH A ONE PIECE POUCH (#[id number]).
[2021-03-25 22:29] VITALS: BP 148/79
[2021-03-26 04:45] VITALS: BP 142/71
[2021-03-26 04:52] LABS: ABSOLUTE BASOPHILS 0.1 thou/uL (0.0-0.2); ABSOLUTE EOSINOPHILS 0.2 thou/uL (0.0-0.7); ABSOLUTE LYMPHOCYTES 0.9 thou/uL (0.8-5.3); ABSOLUTE MONOCYTES 0.8 thou/uL (0.0-1.2); ABSOLUTE NEUTROPHILS 5.2 thou/uL (1.6-8.1); BASOPHILS 0.8 %; EOSINOPHILS 2.3 %; HEMATOCRIT 24.7 % (37.0-47.0); HEMOGLOBIN 7.7 gm/dL (12.0-15.0); LYMPHOCYTES 12.7 %; MCHC 31.4 g/dL (28.0-37.0); MCV 73.4 fL (80.0-100.0); MONOCYTES 11.7 %; MPV 9.1 fl. (7.2-11.1); NUCLEATED RBCS 0 /100WBC; PLATELET COUNT* 270 thou/uL (150-400); POLYS 72.5 %; RBC 3.36 mil/uL (4.20-5.00); RDW-CV 28.9 % (10.5-14.5); WBC 7.1 thou/uL (4.0-11.0)
[2021-03-26 05:02] LABS: ALBUMIN 2.1 g/dL (3.4-5.0); CALCIUM 8.7 mg/dL (8.5-10.1); CREATININE 0.6 mg/dL (0.6-1.3); POTASSIUM 3.9 mmol/L (3.5-5.1); TOTAL BILIRUBIN 0.3 mg/dL (<0.1-1.0); TOTAL PROTEIN 5.6 g/dL (6.4-8.2)
[2021-03-26 07:43] LABS: ANISOCYTOSIS 2+; HYPOCHROMASIA 1+; MICROCYTES 2+
[2021-03-26 07:48] VITALS: BP 150/72
--- NOTE | 2021-03-26 11:11 | CON ---
[address] [address] CONSULTATION Name: ENRIQUE STEINER Room: [address] M.R.#: [id number] Admission: 03/12/21 Attend Phys: Destiney Keller MD Discharge: Date of : 36 Report #: [id number] THIS REPORT FOR: cc: Timoteo Lewis MD, Srinath MD Arakelov,Ralph Sarah MD ~ DATE OF CONSULTATION: 03/23/2021 REFERRING PHYSICIAN: Dr. Keller. REASON FOR CONSULTATION: Acute kidney injury. HISTORY OF PRESENT ILLNESS: The patient is an 80-year-old female, admitted to the hospital after a fall from her bed that resulted in multiple skin abrasions over the right wrist, face and left leg. When she was admitted, her renal functions were normal. The patient was evaluated here for problems with GI system. She was anemic. 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 Her splenic flexure was taken down as well and colostomy was created. Post-surgery, her blood pressure dropped low, urine output dropped and I was consulted. Creatinine went up from 0.6 on 03/21 to 1.7 on 03/22 and 2.4 today. She was given fluids. I discussed this case in detail with the surgical forceps fabricator yesterday. Her creatinine is up to 2.4, but urine output improved. PAST MEDICAL HISTORY: Significant for advanced dementia, congestive heart failure, obesity, and cancer as I described earlier. SOCIAL HISTORY: No tobacco or alcohol abuse. FAMILY HISTORY: No history of renal disease. MEDICATIONS: Reviewed. She was on losartan for her hypertension. Losartan was stopped on 03/22. REVIEW OF SYSTEMS: Unobtainable due to dementia. PHYSICAL EXAMINATION: GENERAL: She is awake, but disoriented. VITAL SIGNS: Blood pressure 130/60, heart rate 62, afebrile. HEENT: Pupils are round. NECK: Fatty. LUNGS: Few bilateral wheezes. CARDIAC: [place] [address] CONSULTATION Name: ENRIQUE STEINER Room: [address] IN [facility]#: [id number] Admission: 03/12/21 Attend Phys: Destiney Keller MD Discharge: Date of : 36 Report #: [id number] ABDOMEN: Colostomy is in place. LOWER EXTREMITIES: Trace edema. ASSESSMENT: 1. Acute kidney injury due to surgical stress with transient hypotension and use of contrast. She had a CT scan with IV contrast done on 03/18 and 03/22. She also was on losartan. Now, losartan was stopped. She was given 2 liters of fluid yesterday, went into mild pulmonary congestion and was given Lasix. 2. 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 3. Dementia. 4. Cardiomyopathy. PLAN: 1. She is not taking anything p.o., so we will continue with NS at 50 mL an hour and use diuretics as necessary. 2. Avoid IV contrast. 3. Avoid losartan. We will follow with you closely. <ELECTRONICALLY SIGNED> By: Ralph Parada MD 03/26/21 1111 0940 1003Alexshahrzad Parada MD /nt
[2021-03-26 16:33] VITALS: BP 150/72
--- NOTE | 2021-03-26 16:41 | NUR ---
PHYSICIAN INFORMS OF PLAN FOR THE PT TO D/C TODAY BACK TO HER LTC FACILITY. CM INFORMED PT'S LTC ADMISSIONS AND THEY ARE ABLE TO ACCEPT THE PT TODAY. D/C ORDERS AND RAPID COVID FAXED. RN INFORMED OF WHERE TO CALL REPORT. CM WILL REMAIN AVAILABLE TO ASSIST AND FOLLOW NEEDED. [facility] PHONE: [phone] FAX: [phone]
--- NOTE | 2021-03-26 17:43 | NUR ---
report called to nik at [facility]. pt left via ambulance in stable condtion
--- NOTE | 2021-03-26 18:06 | PATH ---
[address] [address] PATHOLOGY RPT PROCEDURE Name: SIDRA STEINERTIE Room: [address] IN M.R.#: [id number] Admission: 03/12/21 Date of : 36 Discharge: 03/26/21 Report #: [id number] Path Case #: [id number] [facility] Accession Number: [id number] . 01 Material submitted: . PART A: hernia - HERNIAL SAC PART B: liver - LIVER NODULE PART C: colon - LEFT COLON. Modifiers: left . 01 Clinical history: . SMALL BOWEL RESECTION (+++) DESCENDING SIGMOID COLON, MALIGNANT STRICTURE, UMBILICAL HERNIA ANEMIA, AFIB, DYSPNEA . 02 Diagnosis: A. Hernial sac: - Benign fibrofatty tissue with mild chronic inflammation. . B. LIVER NODULE: - ADENOCARCINOMA, MODERATELY DIFFERENTIATED, TYPICAL OF COLONIC PRIMARY, INVOLVING LIVER. SEE COMMENT. . C. LEFT COLON: - ULCERATED COLONIC ADENOCARCINOMA, MODERATELY DIFFERENTIATED, (IN ASSOCIATION WITH STENT PLACEMENT) FORMING A STRICTURED MASS MEASURING 4.5 X 2.2 CM, WITH TRANSMURAL INVASION TO MULTIFOCALLY INVOLVE INKED FREE-SEROSAL SURFACE, WITH PROXIMAL, DISTAL AND MESENTERIC RESECTION MARGINS FREE OF INVOLVEMENT. - Eleven benign pericolic lymph nodes, several with black pigment tattooing (0/11). - Two fatty tumor deposits. - See comment. . CASE SUMMARY: (COLON AND RECTUM: Resection, Including Transanal Disk Excision of Rectal Neoplasms) . SPECIMEN Procedure ___ Left hemicolectomy TUMOR Tumor Site ___ Descending colon ___ Sigmoid colon Histologic Type ___ Adenocarcinoma Histologic Grade ___ G2, moderately differentiated Tumor Size ___ Greatest dimension In Centimeters: 4.5 [place] [address] PATHOLOGY RPT PROCEDURE Name: ENRIQUE STEINER Room: [address] IN ..#: [id number] Admission: 03/12/21 Date of : 36 Discharge: 03/26/21 Report #: [id number] Path Case #: [id number] +Additional Dimension: 2.2 x 1.1 cm Tumor Extent ___ Invades visceral peritoneum Macroscopic Tumor Perforation ___ Not identified Lymphovascular Invasion ___ Not identified Perineural Invasion ___ Not identified +Number of Tumor Buds (per 'hotspot' field) ___ 3 per 'hotspot' field +Tumor Caspian Score ___ Low (0-4) +Type of Polyp in which Invasive Carcinoma Arose ___ None identified Treatment Effect ___ No known presurgical therapy MARGINS Margin Status for Invasive Carcinoma ___ All margins negative for invasive carcinoma +Closest Margin to Invasive Carcinoma ___ Mesenteric +Distance from Invasive Carcinoma to Closest Margin ___ Exact distance in cm: 4.2 cm REGIONAL LYMPH NODES Regional Lymph Node Status ___ Regional lymph nodes present ___ All regional lymph nodes negative for tumor Number of Lymph Nodes Examined ___ At least: 11 (see comment) Tumor Deposits ___ Present Number of Tumor Deposits ___ 2 DISTANT METASTASIS Distant Sites Involved ___ Liver . PATHOLOGIC STAGE CLASSIFICATION (pTNM, AJCC 8TH EDITION) pT Category ___ pT4a: Tumor invades# through the visceral peritoneum (including gross perforation of the bowel through tumor and continuous invasion of tumor through areas of inflammation to the surface of the visceral peritoneum) pN Category ___ pN1c: No regional lymph nodes are positive, but there are tumor deposits in the subserosa, mesentery, nonperitonealized pericolic or perirectal / mesorectal tissues pM Category ___ pM1c: Metastasis to the peritoneal surface is [place] [address] PATHOLOGY RPT PROCEDURE Name: OBDULIAENRIQUE Room: [address] IN [facility]#: [id number] Admission: 03/12/21 Date of : 36 Discharge: 03/26/21 Report #: [id number] Path Case #: [id number] other site or organ metastases ADDITIONAL FINDINGS +Additional Findings ___ Other: Punctate ulcerations (MITCHELL/db; 03/26/2021) LBQ 03/26/2021 165 Local . 02 Comment: The grossly described polyp (C9) is seen to represent non-adenomatous and polypoid redundant mucosa. Punctate ulcerations seen in several sections including in regions described as cobblestoned are attributable to the stent in place. . The metastatic tumor identified in the liver (B) is histologically identical to that seen in the left colon specimen. . In specimen C, tumor is seen to invade the inked free serosal surface in several foci. One of the two fatty tumor deposits has a rounded nature and could represent an obliterated/involved lymph node. Adjacent to this same focus there is tumor within the surrounding fat as well. A second fatty tumor deposit is also seen in C6. . . MICROSATELLITE INSTABILITY REPORT (MSI): . Mismatch repair (MMR) protein immunohistochemical staining was performed. . Specimen: Formalin fixed paraffin embedded tissue Specimen ID: [id number] C6 Reason for testing: To evaluate for evidence of defective mismatch repair proteins. Method: Immunohistochemical staining for the presence or absence of protein expression of one or more of the following MMR protein markers: MLH1, MSH2, MSH6 and PMS2. Tumor type: Colonic adenocarcinoma . Results: MLH1 - Preserved MSH2 - Preserved MSH6 - Preserved PMS2 - Preserved . Mismatch Repair Status: MMR Proficient (MMR-P) . Interpretation: . All four MMR proteins are preserved within tumor cells. This suggests the presence of normal DNA mismatch repair function [place] [address] PATHOLOGY RPT PROCEDURE Name: ENRIQUE STEINER Room: [address] IN M.R.#: [id number] Admission: 03/12/21 Date of : 36 Discharge: 03/26/21 Report #: [id number] Path Case #: [id number] observable defect in mismatch repair is not identified. The likelihood that this patient has an inherited germline mutation syndrome due to defective mismatch repair is reduced but not totally eliminated. If the patient has a strong personal or family history of HPNCC/Corona syndrome related cancers (colorectal, endometrial, gastric, ovarian, pancreatic, ureter/renal pelvis, biliary tract, brain, small bowel and Sabino-Deacon syndrome), consider MSI testing by PCR methodology. Suggest clinical correlation and follow up. . These test results are designed for screening purposes only and are useful tools in identifying cancer patients that are more likely to have Corona Syndrome related diagnoses. Tests should be interpreted in the context of clinical findings, family history and laboratory data. Abnormal IHC results for MMR protein expression are not considered diagnostic for Corona Syndrome. (MITCHELL/db; 03/26/2021) . 02 Electronically signed: . Wiley Judd MD, Pathologist NPI- [id number] . 01 Gross description: . A. The specimen is received in formalin, labeled "Enrique Obdulia, hernia sac". Received is a segment of pink-ray fibromembranous tissue with attached fibroadipose tissue measuring 11.2 x 3.3 x 0.8 cm in greatest dimensions. No distinct nodules or lesions are noted grossly. The specimen is submitted representatively in cassette A1. . B. The specimen is received in formalin, labeled "Enrique Obdulia, liver nodule". Received is a segment of pale vegas to orange-vegas tissue measuring 1.3 x 0.9 x 0.3 cm in greatest dimensions. The specimen is bisected and entirely submitted in cassette B1. . C. The specimen is received in formalin, labeled "Enrique Obdulia, left colon". Received is an unoriented segment of colon measuring 25.2 cm in length and ranging in diameter from 2.8 to 5.7 cm. Both margins are stapled. The serosal surface is pink-ray in appearance with an area of stricture located 5.7 cm from the closest margin. Adjacent to this area of stricture, there is a large amount of tattooing identified. The attached pericolic fat measures up to 5.0 cm in thickness. The mesenteric margin is inked orange. There is also attached omentum measuring 15.2 x 10.5 x 3.1 cm. The specimen is opened along the mesenteric line to reveal a stent measuring 8.6 cm in length by 2.9 cm in diameter. Upon removal of the stent, a well-defined, focally ulcerated and pink-ray mass is identified measuring 4.5 x 2.2 cm, which is 5.0 cm from the closest margin. Immediately adjacent to the mass, two biopsy clips are identified. The opposing serosal and fatty surfaces are inked black. Sectioning reveals the mass to grossly extend through the muscularis propria, with a maximum depth of invasion of 1.1 cm, [place] [address] PATHOLOGY RPT PROCEDURE Name: ENRIQUE STEINER Room: [address] IN M.R.#: [id number] Admission: 03/12/21 Date of : 36 Discharge: 03/26/21 Report #: [id number] Path Case #: [id number] the inked serosal surface, is 0.7 cm from the inked fatty surface and 4.2 cm from the mesenteric margin. 3.1 cm from the mass, and 0.9 cm from the closest margin, a pink-vegas polyp is identified measuring 0.9 x 0.8 x 0.6 cm. The remainder of the colonic mucosa is pink-vegas, cobblestoned to predominately flattened in appearance. Sectioning through the omentum reveals yellow-vegas lobulated cut surfaces with no grossly distinct nodules or lesions. Sectioning through the attached pericolic fat reveals eight possible lymph nodes ranging in size from 0.2-0.5 cm in maximum dimensions. The pericolic fat is placed into a lymph node enhancement solution. The specimen is submitted representatively as follows: . C1 closest margin, en face C2 opposite margin, en face C3 perpendicular section through mesenteric margin C4-C5 direct marketing representative sections of mass to show relationship with inked fatty and serosal surfaces C6-C8 additional direct marketing representative sections of mass C9 polyp near margin, bisected C10 direct marketing representative sections of cobblestone mucosa on either side of mass C11 direct marketing representative sections of predominately flattened mucosa C12 direct marketing representative sections of omentum C13-C14 intact possible lymph nodes C15-C19 direct marketing representative sections of lymphovascular bundles. . After fixation in a lymph node enhancement solution, no additional lymph nodes are identified. (CAA; 03/22/2021) QAC/QAC 03/26/2021 0953 Local . 02 Pathologist provided ICD-10: K42.9, C18.8, C78.7 . 02 CPT . 405017, 838141, 830581, A30340, C84683 Specimen Comment: A courtesy copy of this report has been sent to [phone] Specimen Comment: [phone], Specimen Comment: Report sent to , DR TRUJILLO / DR RUSSELL Performed at: 01 [facility] [address] [place] [address] [address], [place], [place] [id number] MD Ghulam Moran MD Phone: [phone] Performed at: 02 [facility] [address], [place], [place] [id number] MD Wiley Judd MD Phone: [phone]
== END 2021-03-26 17:42 | DRG 329 ==
LOC: M.ERS 20:56 → M.TBA-ER 22:32 → M.2W 22:32
PROVIDERS: Emergency Medicine; Internal Medicine; Internal Medicine Gastroenterology; Internal Medicine Nephrology; Student in an Organized Health Care Education/Training Program; Surgery; ADMIT Internal Medicine; ATTEND Internal Medicine
PROC: 30233N1 Transfusion of Nonautologous Red Blood Cells into Peripheral Vein, Percutaneous Approach (ICD-10-PCS; principal; 2021-03-12)
PROC: 0DBM8ZX Excision of Descending Colon, Via Natural or Artificial Opening Endoscopic, Diagnostic (ICD-10-PCS; 2021-03-17)
PROC: 0D7M8DZ Dilation of Descending Colon with Intraluminal Device, Via Natural or Artificial Opening Endoscopic (ICD-10-PCS; 2021-03-17)
PROC: 0DJ08ZZ Inspection of Upper Intestinal Tract, Via Natural or Artificial Opening Endoscopic (ICD-10-PCS; 2021-03-17)
PROC: 0FB20ZX Excision of Left Lobe Liver, Open Approach, Diagnostic (ICD-10-PCS; 2021-03-21)
PROC: 0D1L0Z4 Bypass Transverse Colon to Cutaneous, Open Approach (ICD-10-PCS; 2021-03-21)
PROC: 0WQF0ZZ Repair Abdominal Wall, Open Approach (ICD-10-PCS; 2021-03-21)
PROC: 0DTG0ZZ Resection of Left Large Intestine, Open Approach (ICD-10-PCS; 2021-03-21)
PROC: 0FB00ZX Excision of Liver, Open Approach, Diagnostic (ICD-10-PCS; 2021-03-21)
DX: C18.6 Malignant neoplasm of descending colon (principal); K27.4 Chronic or unspecified peptic ulcer, site unspecified, with hemorrhage; I50.33 Acute on chronic diastolic (congestive) heart failure; J69.0 Pneumonitis due to inhalation of food and vomit; K56.699 Other intestinal obstruction unspecified as to partial versus complete obstruction; D62 Acute posthemorrhagic anemia; I69.352 Hemiplegia and hemiparesis following cerebral infarction affecting left dominant side; I48.11 Longstanding persistent atrial fibrillation; G93.49 Other encephalopathy; N17.9 Acute kidney failure, unspecified; I48.92 Unspecified atrial flutter; I42.9 Cardiomyopathy, unspecified; K43.6 Other and unspecified ventral hernia with obstruction, without gangrene; J91.8 Pleural effusion in other conditions classified elsewhere; Q39.6 Congenital diverticulum of esophagus; E78.00 Pure hypercholesterolemia, unspecified; K42.9 Umbilical hernia without obstruction or gangrene; F03.90 Unspecified dementia, unspecified severity, without behavioral disturbance, psychotic disturbance, mood disturbance, and anxiety; I11.0 Hypertensive heart disease with heart failure; K21.9 Gastro-esophageal reflux disease without esophagitis; I48.91 Unspecified atrial fibrillation; D64.9 Anemia, unspecified; E66.9 Obesity, unspecified; I08.3 Combined rheumatic disorders of mitral, aortic and tricuspid valves; K44.9 Diaphragmatic hernia without obstruction or gangrene; Z20.822 Contact with and (suspected) exposure to COVID-19; Z68.28 Body mass index [BMI] 28.0-28.9, adult